=== PATIENT | male | born 1945 | race Two or more races ===

== ENCOUNTER 2020-09-25 18:47 | Inpatient (IN) | payer MEDICARE, OTHER ==
[~2020-09-25] VITALS: Ht 177.8 cm; Wt 24.9 kg
[~2020-09-25 18:47] MED LIST: ASPIR-LOW81 MG ORAL; PAXIL10 MG ORAL; VENTOLIN HFA18 GM INH
--- NOTE | 2020-09-25 18:55 | NUR ---
ED Nurse Note: PATIENT ARRIVED WITH RA # [id number] DUE TO BLOOD IN STOOL X 2 TIMES TODAY. PATIENT ARRIVED FROM SNF, AAO X 4, ALL VSS AT THIS TIME.
--- NOTE | 2020-09-25 18:58 | Emergency Room Report ---
History of Present Illness General Chief Complaint: General Complaint Source: Patient Present Illness HPI 75-year-old male here with bloody stool. Patient says that for the past 3 days he has had severe diarrhea and that earlier today he had a large amount of diarrhea that was mixed with red blood. Patient does have a history of anterior status post partial colectomy and was told that he has some polyps still. Denies fevers, chills, chest pain, shortness of breath, palpitations, lightheadedness, back pain, abdominal pain, nausea, vomiting, dysuria. 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 Nursing Documentation-[facility] Past Medical History: No History, Except For Hx Hypertension: Yes - ANXIETY, GERD Hx Asthma: Yes Hx Cancer: No Hx Gastrointestinal Problems: No Hx Neurological Problems: No Review of Systems All Other Systems: negative except mentioned in HPI Physical Exam Vital Signs Date Time Temp Pulse Resp B/P (MAP) Pulse Ox O2 Delivery O2 Flow Rate FiO2 09/25/20 18:42 98.1 98 16 111/60 (77) 100 Room Air Sp02 EP Interpretation: reviewed, normal General Appearance: no apparent distress, alert, non-toxic Head: normocephalic, atraumatic Eyes: bilateral eye normal inspection, bilateral eye PERRL ENT: hearing grossly normal, normal pharynx, no angioedema, normal voice Neck: full range of motion, supple/symm/no masses Respiratory: chest non-tender, lungs clear, normal breath sounds, speaking full sentences, other - 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 Well-healed midline sternotomy scar Cardiovascular #1: regular rate, rhythm, no edema Cardiovascular #2: 2+ carotid (R), 2+ carotid (L), 2+ radial (R), 2+ radial (L), 2+ dorsalis pedis (R), 2+ dorsalis pedis (L) Gastrointestinal: normal bowel sounds, non tender, soft, non-distended, no guarding, no rebound, other - Postsurgical changes. No abdominal tenderness. No rebound or guarding. No distention Rectal: deferred Genitourinary: normal inspection, no CVA tenderness Musculoskeletal: back normal, normal range of motion, gait/station normal, non- tender Neurologic: alert, motor strength/tone normal, oriented x3, sensory intact, responsive, speech normal Psychiatric: judgement/insight normal, memory normal, mood/affect normal, no suicidal/homicidal ideation Lymphatic: no adenopathy Medical Decision Making Diagnostic Impression: Primary Impression: GI bleed Additional Impressions: Pancreatitis Hyperbilirubinemia Diarrhea ER Course EKG: Atrial fibrillation, 101 bpm, no ischemia, intervals WNL. No ectopy. Left axis deviation. Nonspecific intraventricular block Rhythm strip: patient monitored for arrhythmias - no malignant dysrhythmias, runs of PVCs, nor pauses noted Laboratory Tests Test 09/25/20 19:05 White Blood Count 9.6 K/UL (4.8-10.8) Red Blood Count 3.70 M/UL (4.70-6.10) L Hemoglobin 12.3 G/DL (14.2-18.0) L Hematocrit 37.8 % (42.0-52.0) L Mean Corpuscular Volume 102 FL (80-99) H Mean Corpuscular Hemoglobin 33.1 PG (27.0-31.0) H Mean Corpuscular Hemoglobin Concent 32.4 G/DL (32.0-36.0) Red Cell Distribution Width 15.0 % (11.6-14.8) H Platelet Count 141 K/UL (150-450) L Mean Platelet Volume 9.2 FL (6.5-10.1) Neutrophils (%) (Auto) 69.0 % (45.0-75.0) Lymphocytes (%) (Auto) 21.0 % (20.0-45.0) Monocytes (%) (Auto) 6.6 % (1.0-10.0) Eosinophils (%) (Auto) 2.1 % (0.0-3.0) Basophils (%) (Auto) 1.3 % (0.0-2.0) Prothrombin Time 14.1 SEC (9.30-11.50) H Prothrombin Time INR 1.3 (0.9-1.1) H Activated Partial Thromboplast Time 28 SEC (23-33) Sodium Level 141 MMOL/L (136-145) Potassium Level 3.4 MMOL/L (3.5-5.1) L Chloride Level 108 MMOL/L (98-107) H Carbon Dioxide Level 26 MMOL/L (21-32) Anion Gap 7 mmol/L (5-15) Blood Urea Nitrogen 17 mg/dL (7-18) Creatinine 1.1 MG/DL (0.55-1.30) Estimated Glomerular Filtration Rate > 60 mL/min (>60) Glucose Level 96 MG/DL (74-106) Calcium Level 8.7 MG/DL (8.5-10.1) Total Bilirubin 4.3 MG/DL (0.2-1.0) H Direct Bilirubin 2.6 MG/DL (0.0-0.3) H Aspartate Amino Transferase (AST) 68 U/L (15-37) H Alanine Aminotransferase (ALT) 37 U/L (12-78) Alkaline Phosphatase 154 U/L (46-116) H Total Protein 7.8 G/DL (6.4-8.2) Albumin 2.4 G/DL (3.4-5.0) L Globulin 5.4 g/dL Albumin/Globulin Ratio 0.4 (1.0-2.7) L Lipase 593 U/L (73-393) H 75-year-old male here with diarrhea and hematochezia. Patient was hemodynamically stable and neurovascular intact emergency department. EKG showed patient's baseline atrial fibrillation with a normal heart rate of 100 bpm. Had a normal blood pressure in the emergency department. Hemoglobin was 12.5, decreased from last CBC which our records was 5 years ago. Hemoccult positive. Patient did have evidence of hyperbilirubinemia with a total bilirubin of 4. Lipase was 593. Patient was given IV normal saline and kept n.p.o. in the emergency department. Potassium was mildly low at 3.4, which was repleted in the emergency department. Right upper quadrant ultrasound was performed. Showed contracted gallbladder with no identifiable stones. There is some mild extrahepatic biliary duct dilatation, MRCP advised to be considered to evaluate for choledocholithiasis. Patient however had no right upper quadrant a bdominal pain whatsoever. Primary care physician was informed. Patient was given Protonix. Patient admitted in stable condition. Last Vital Signs Date Time Temp Pulse Resp B/P (MAP) Pulse Ox O2 Delivery O2 Flow Rate FiO2 09/25/20 18:42 98.1 98 16 111/60 (77) 100 Room Air Shaka Vega M.D. Sep 25, 2020 18:58
[2020-09-25 19:18] LABS: BASOPHILS % (AUTO) 1.3 % (0.0-2.0); EOSINOPHILS % (AUTO) 2.1 % (0.0-3.0); HEMATOCRIT 37.8 % (42.0-52.0); HEMOGLOBIN 12.3 G/DL (14.2-18.0); MEAN CORPUSCULAR VOLUME 102 FL (80-99); MONOCYTES % (AUTO) 6.6 % (1.0-10.0); PLATELET COUNT 141 K/UL (150-450); WHITE BLOOD COUNT 9.6 K/UL (4.8-10.8)
[2020-09-25 19:19] VITALS: BP 111/60
--- NOTE | 2020-09-25 19:26 | NUR ---
HAND-OFF: Report given to PASCUAL Don.
[2020-09-25 19:27] LABS: INR 1.3 (0.9-1.1)
[2020-09-25 19:30] LABS: ANION GAP 7 mmol/L (5-15); BLOOD UREA NITROGEN 17 mg/dL (7-18); CALCIUM 8.7 MG/DL (8.5-10.1); CARBON DIOXIDE 26 MMOL/L (21-32); CHLORIDE 108 MMOL/L (98-107); CREATININE 1.1 MG/DL (0.55-1.30); POTASSIUM 3.4 MMOL/L (3.5-5.1); SODIUM 141 MMOL/L (136-145)
--- NOTE | 2020-09-25 19:35 | NUR ---
Nurse Note: Pt resting in bed, attached on monitoring engineer. Pt a&ox4, VSS, all orders completed per ERMD orders. Pt stated he had 2 episodes of red stools in 24 hrs. Bowel sounds heard in all quadrants. Skin intact, bruising noted on bilateral wrists. All safety measures met; will continue to monitor.
[2020-09-25 19:40] LABS: ALANINE AMINOTRANSFERASE 37 U/L (12-78); ALBUMIN 2.4 G/DL (3.4-5.0); ALBUMIN/GLOBULIN RATIO 0.4 (1.0-2.7); ALKALINE PHOSPHATASE 154 U/L (46-116); ASPARTATE AMINO TRANSFERASE 68 U/L (15-37); BILIRUBIN,TOTAL 4.3 MG/DL (0.2-1.0)
[2020-09-25 19:44] LABS: BILIRUBIN,DIRECT 2.6 MG/DL (0.0-0.3)
--- NOTE | 2020-09-25 19:52 | NUR ---
Nurse Note: US at bedside; covid swab collected and sent to lab
[2020-09-25] MEDS ORDERED: Metoprolol Tartrate 5mg/5ml Inj IVP SCH (20:45)
[2020-09-25 20:50] LABS: APPEARANCE,URINE CLEAR; BILIRUBIN, URINE 1+ (NEGATIVE); COLOR,URINE BROWN; GLUCOSE, URINE (UA) NEGATIVE (NEGATIVE); KETONES,URINE NEGATIVE (NEGATIVE); LEUKOCYTE ESTERASE ,URINE 1+ (NEGATIVE); NITRITE,URINE NEGATIVE (NEGATIVE); PH,URINE 6.5 (4.5-8.0); PROTEIN,URINE NEGATIVE (NEGATIVE); UROBILINOGEN,URINE 8 MG/DL (0.0-1.0)
--- NOTE | 2020-09-25 20:51 | Diagnostic Imaging Report ---
EXAM: US Abdomen Complete CLINICAL HISTORY: PAIN TECHNIQUE: Real-time ultrasound of the abdomen with image documentation. COMPARISON: No relevant prior studies available. FINDINGS: Liver: Mild increased echogenicity of the hepatic parenchyma consistent with steatosis. No intrahepatic bile duct dilation. Gallbladder: The gallbladder is contracted likely reflecting nonfasting state at the time of imaging, requires clinical correlation. Common bile duct: Biliary ductal dilatation with the common duct measuring up to 11 mm. Consider MRCP. No stones. Pancreas: Unremarkable as visualized. Kidneys: Cortical renal cyst on the right and no evidence of obstructive uropathy. No evidence of obstructive uropathy on the left. No stones. Spleen: Splenomegaly with the spleen measuring approximately 13 cm in long axis. Aorta: Unremarkable. No aneurysm. Inferior vena cava: Unremarkable. Free fluid: No free fluid. IMPRESSION: Contracted gallbladder with no identifiable stones. Extrahepatic biliary ductal dilatation, consider MRCP to evaluate for choledocholithiasis.
--- NOTE | 2020-09-25 21:07 | NUR ---
Nurse Note: Urine sent to lab. Per MD, hold Metoprolol and adminsiter when HR >120 bpm. Pt resting in bed; all safety measures met; will continue to monitor. Caregiver: Viki,
[2020-09-25] MEDS ORDERED: ATIVAN1 MG ORAL (21:19)
[2020-09-25] MEDS ORDERED: CATAPRES0.1 MG ORAL (21:23)
[2020-09-25] MEDS ORDERED: BISACODYL5 MG ORAL (21:23)
[2020-09-25] MEDS ORDERED: COLACE100 MG ORAL (21:23)
[2020-09-25] MEDS ORDERED: MILK OF MA400 MG/51 ORAL (21:25)
[2020-09-25] MEDS ORDERED: FLEET ENEMA133 ML RECTAL (21:25)
[2020-09-25] MEDS ORDERED: GABAPENTIN100 MG ORAL (21:25)
[2020-09-25] MEDS ORDERED: MULTIVITAMINS1 EAC8 ORAL (21:26)
[2020-09-25] MEDS ORDERED: TYLENOL EXTRA500 MG ORAL (21:28)
[2020-09-25] MEDS ORDERED: MYLANTA MAXIMU355 ML PO (21:28)
[2020-09-25] MEDS ORDERED: PANTOPRAZOLE SO40 MG ORAL (21:28)
--- NOTE | 2020-09-25 21:33 | NUR ---
NURSE NOTES: RECEIVED REPORT FROM PASCUAL PATEL. AWAITING PATIENT'S ARRIVAL.
--- NOTE | 2020-09-25 21:33 | NUR ---
Nurse Note: Report given to PASCUAL Hess for continuity of care.
[2020-09-25 21:45] VITALS: BP 122/68
--- NOTE | 2020-09-25 21:45 | NUR ---
NURSE NOTES: PATIENT ARRIVED FROM ED VIA GURNEY, TRANSFERRED TO [facility] PER MD ORDER UNDER CARE OF Marietta ANN WITH ADMITTING DIAGNOSIS OF GI BLEED. PATIENT TRANSFERRED TO BED VIA 2-PERSON ASSIST WITHOUT INCIDENT, PATIENT ABLE TO ASSIST WITH TRANSFER. AAOX4, VERBALLY RESPONSIVE AND ABLE TO MAKE NEEDS KNOWN. NO COMPLAINTS OF PAIN OR DISCOMFORT AT THIS TIME. SINUS TACHYCARDIA ON TIRE CENTER MANAGER WITH HF OR 125 AT THIS TIME. BREATHING EVEN AND UNLABORED ON ROOM AIR, NO S/SX OF DISTRESS NOTED. IV SITE LFA 20G PATENT, INTACT, ASYMPTOMATIC AND SALINE-LOCKED. BELONGINGS VERIFIED WITH PATIENT- NO CELLPHONE/DENTURES/GLASSES/AMBULATORY AIDES IN POSSESSION. ORIENTED PATIENT TO UNIT, ROOM, CALL LIGHT, BED CONTROL, AND COMMUNICATION BOARD. EDUCATED PATIENT ON FALL PREVENTION PRACTICES- VERBALIZED UNDERSTANDING. FALL PRECAUTIONS IN PLACE. BED LOCKED AND IN LOWEST POSITION, SIDERAILS UP X 2. CALL LIGHT AND URINAL WITHIN REACH. WILL CONTINUE TO MONITOR PER POC. V/S AT TIME OF ADMISSION ARE FOLLOWS: BP 128/80 (RIGHT ARM), HR 111, RR 18, SAO2 100% ON ROOM AIR, TEMP 97.6F. Addendum: 09/26/20 at 0015 by Magy Gutierrez RN A.FIB ON TIRE CENTER MANAGER WITH HR OF 125
[2020-09-25 22:00] VITALS: BP 128/80
[2020-09-25] MEDS: Pantoprazole Inj IVP SCH (22:22)
--- NOTE | 2020-09-25 22:30 | NUR ---
NURSE NOTES: CONTACTED DR. MERINO FOR ADMISSION ORDERS. AWAITING CALL BACK.
[2020-09-25] MEDS ORDERED: Morphine Sulfate 2mg/ml Inj(IV/IM USE ONLY) IVP PRN (22:45)
[2020-09-25] MEDS ORDERED: Milk of Magnesia 30ml Ud ORAL PRN (23:00)
[2020-09-25] MEDS ORDERED: LORazepam 1mg tab ORAL PRN (23:00)
--- NOTE | 2020-09-25 23:00 | NUR ---
NURSE NOTES: RECEIVED ADMISSION ORDERS FROM DR. MERINO. NOTED AND CARRIED OUT.
[2020-09-25] MEDS: D5 1/2NS 1,000 ML IV SCH (23:16)
[2020-09-26] VITALS: BP 110/68
[2020-09-26 04:00] VITALS: BP 121/70
--- NOTE | 2020-09-26 06:35 | NUR ---
NURSE HAND-OFF REPORT: Important Events on Shift: NEW ADMISSION Patient Status: STABLE Diet: NPO Pending Orders: N/A Pending Results/Labs: AM LABS Pending MD notification: N/A Latest Vital Signs: Temperature 97.8 , Pulse 88 , B/P 121 /70 , Respiratory Rate 16 , O2 SAT 99 , Room Air, O2 Flow Rate . Vital Sign Comment: STABLE EKG Rhythm: Atrial Fibrillation Rhythm change?: N MD Notified?: - MD Response: Latest Munguia Fall Score: 65 Fall Risk: High Risk Safety Measures: Call light Within Reach, Bed Alarm Zone 1, Side Rails Side Rails x3, Bed position Low and Locked. Fall Precautions: Yellow Socks Yellow Gown Door Sign Patient Fall Education Report given to WILL AMEND ONCE REPORT GIVEN TO ASSIGNED NURSE. Addendum: 09/26/20 at 0752 by Magy Gutierrez RN REPORT GIVEN TO PASCUAL FAY.
--- NOTE | 2020-09-26 07:56 | NUR ---
NURSE NOTES:Handoff received from PASCUAL Bhatti. Patient received sleeping in bed, on room air with no acute signs of distress noted, patient is placed on bedrest and fall precautions with bed in the low and locked position and call light within reach. RN endorsed that patient had episode of A-FIB Primary MD aguiar notified but no new orders or consult provided to PM shift nurse, Patient is now in Sinus rhythm. Patient is NPO and uses urinal. L FA IV site is clean dry and intact, running D51/2NS @60ML/HR. will continue plan of care.
[2020-09-26 08:00] VITALS: BP 113/60
--- NOTE | 2020-09-26 08:10 | NUR ---
NURSE NOTES:Dr Butts arrived on the unit, informed him that patient had an episode of A-FIB on nightshift asked if he wanted a cardiology consult, Dr Butts stated he will put in a consult for Dr Silveira-electronics technology department chair.
[2020-09-26] MEDS: PARoxetine HCL 10mg tab ORAL SCH (08:47)
[2020-09-26] MEDS: Docusate 100mg cap ORAL SCH (08:47)
[2020-09-26 08:54] LABS: HEMATOCRIT 38.1 % (42.0-52.0); HEMOGLOBIN 12.1 G/DL (14.2-18.0); MEAN CORPUSCULAR VOLUME 104 FL (80-99); MONOCYTES % (AUTO) 7.7 % (1.0-10.0); NEUTROPHILS % (AUTO) 65.3 % (45.0-75.0); PLATELET COUNT 127 K/UL (150-450); RED BLOOD COUNT 3.66 M/UL (4.70-6.10); RED CELL DISTRIBUTION WIDTH 15.2 % (11.6-14.8); WHITE BLOOD COUNT 8.4 K/UL (4.8-10.8)
--- NOTE | 2020-09-26 09:05 | NUR ---
PT EVALUATION NOTE Patient seen for initial evaluation and treatment initiated. Patient presents with generalized weakness and decreased balance which impairs patient's ability to perform mobility tasks safely and increased fall risk. Patient requires SBA/CGA for bed mobility and transfers with FWW. Patient unsteady upon standing and requires verbal cues for proper safety precautions. Patient able to ambulate 40 ft with CGA and FWW, unsteady with fair balance. Patient will benefit from skilled inpatient PT intervention to increase strength and postural stability for improved level of functional mobility and safety and to decrease fall risk. Recommend discharge to SNF for continued rehab once medically cleared by MD. Recommend FWW for ambulation. Addendum: 09/26/20 at 1257 by GONZALO CHRISTY PT Amended: Links added.
[2020-09-26 09:11] LABS: AMYLASE 80 U/L (25-115); ANION GAP 7 mmol/L (5-15); BLOOD UREA NITROGEN 12 mg/dL (7-18); CALCIUM 7.9 MG/DL (8.5-10.1); CARBON DIOXIDE 23 MMOL/L (21-32); CHLORIDE 111 MMOL/L (98-107); CREATININE 0.9 MG/DL (0.55-1.30); POTASSIUM 3.6 MMOL/L (3.5-5.1); SODIUM 141 MMOL/L (136-145)
--- NOTE | 2020-09-26 10:05 | NUR ---
NURSE NOTES:Patient is requesting to not be sent back to SNF stating that he has his own home next door to his customer care voice consultant/GF who can take care of him. Informed him that I will make his wishes known to case management.
--- NOTE | 2020-09-26 10:47 | NUR ---
NURSE NOTES:Made multiple calls to multiple different watch caser but no reply, will try again later.
--- NOTE | 2020-09-26 10:54 | NUR ---
NURSE NOTES:Off tele order received from Dr Butts for patient imaging study.
--- NOTE | 2020-09-26 11:04 | NUR ---
NURSE NOTES:went in to get consent from patient. Patient requesting to speak to the MD regarding the EGD and Colonoscopy.
[2020-09-26 11:37] VITALS: BP 110/61
--- NOTE | 2020-09-26 12:14 | Consultation ---
History of Present Illness General Date patient seen: Sep 26, 2020 Chief Complaint: General Complaint Present Illness HPI 75 y/o M with hx of GERD, anxiety, partial colectomy presented to ED on 09/25/20 with 3 days of severe bloody diarrhea Denied f/c, CP, SOB, abd pain, n/v/d, dysuria. Allergies: Coded Allergies: PENICILLINS (Unverified Allergy, Unknown, 02/01/15) Medication History Scheduled Albuterol Sulfate (Ventolin Hfa), 2 PUFFS INH BID, (Reported) Aspirin* (Aspir-Low*), 81 MG ORAL DAILY, (Reported) Bisacodyl* (Dulcolax*), 10 MG ORAL DAILY, (Reported) Docusate Sodium* (Colace*), 100 MG ORAL DAILY, (Reported) Gabapentin* (Gabapentin*), 300 MG ORAL THREE TIMES A DAY, (Reported) Magnesium Hydroxide* (Milk Of Magnesia*), 30 ML ORAL DAILY, (Reported) Multivitamin With Minerals (Multivitamins With Minerals*), 1 TAB ORAL DAILY, (Reported) Na Phos,M-B/Na Phos,Di-Ba* (Fleet Enema*), 133 ML RECTAL PRN, (Reported) Pantoprazole* (Pantoprazole*), 40 MG ORAL DAILY, (Reported) Paroxetine Hcl* (Paxil*), 10 MG ORAL DAILY, (Reported) Scheduled PRN Acetaminophen* (Tylenol Extra Strength*), 500 MG ORAL Q6H PRN for Mild Pain/Temp > 100.5, (Reported) Clonidine Hcl* (Catapres*), 0.1 MG ORAL EVERY 6 HOURS PRN for For High Blood Pressure, (Reported) Lorazepam* (Ativan*), 1 MG ORAL BID PRN for For Anxiety, (Reported) Miscellaneous Medications Mag Hydrox/Aluminum Hyd/Simeth (Mylanta Maximum Strength Liq), 30 ML PO, ( Reported) Patient History Healthcare decision maker N Resuscitation status Advanced Directive on File Patient History Narrative Pmhx: as above Shx: reviewed Fhx: non contributory Review of Systems All Other Systems: negative except mentioned in HPI Physical Exam Physical Exam Narrative not examined as pt was on MRI Last 24 Hour Vital Signs Date Time Temp Pulse Resp B/P (MAP) Pulse Ox O2 Delivery O2 Flow Rate FiO2 09/26/20 11:37 96.8 74 20 110/61 (77) 97 09/26/20 08:29 Room Air 09/26/20 08:00 96.8 76 18 113/60 (77) 96 09/26/20 08:00 75 09/26/20 04:00 86 09/26/20 04:00 97.8 88 16 121/70 (87) 99 09/26/20 00:00 97 09/26/20 00:00 97.8 110 18 110/68 (82) 99 09/25/20 23:16 125 20 111/70 100 09/25/20 23:09 Room Air 09/25/20 22:00 97.6 111 18 128/80 (96) 100 09/25/20 21:45 98.8 88 16 122/68 100 Room Air 09/25/20 21:45 88 16 122/68 100 Room Air 09/25/20 19:19 98 16 Room Air 09/25/20 19:19 16 111/60 100 Room Air 09/25/20 18:42 98.1 98 16 111/60 (77) 100 Room Air Intake and Output 09/25/20 09/26/20 19:00 07:00 Intake Total 2404 ml Output Total 1000 ml Balance 1404 ml IV Total 2404 ml Output Urine Total 1000 ml # Voids 1 Laboratory Tests Test 09/25/20 19:05 09/25/20 20:38 09/26/20 08:41 White Blood Count 9.6 K/UL (4.8-10.8) 8.4 K/UL (4.8-10.8) Red Blood Count 3.70 M/UL (4.70-6.10) L 3.66 M/UL (4.70-6.10) L Hemoglobin 12.3 G/DL (14.2-18.0) L 12.1 G/DL (14.2-18.0) L Hematocrit 37.8 % (42.0-52.0) L 38.1 % (42.0-52.0) L Mean Corpuscular Volume 102 FL (80-99) H 104 FL (80-99) H Mean Corpuscular Hemoglobin 33.1 PG (27.0-31.0) H 33.1 PG (27.0-31.0) H Mean Corpuscular Hemoglobin Concent 32.4 G/DL (32.0-36.0) 31.8 G/DL (32.0-36.0) L Red Cell Distribution Width 15.0 % (11.6-14.8) H 15.2 % (11.6-14.8) H Platelet Count 141 K/UL (150-450) L 127 K/UL (150-450) L Mean Platelet Volume 9.2 FL (6.5-10.1) 9.4 FL (6.5-10.1) Neutrophils (%) (Auto) 69.0 % (45.0-75.0) 65.3 % (45.0-75.0) Lymphocytes (%) (Auto) 21.0 % (20.0-45.0) 22.0 % (20.0-45.0) Monocytes (%) (Auto) 6.6 % (1.0-10.0) 7.7 % (1.0-10.0) Eosinophils (%) (Auto) 2.1 % (0.0-3.0) 4.0 % (0.0-3.0) H Basophils (%) (Auto) 1.3 % (0.0-2.0) 1.0 % (0.0-2.0) Prothrombin Time 14.1 SEC (9.30-11.50) H Prothromb Time International Ratio 1.3 (0.9-1.1) H Activated Partial Thromboplast Time 28 SEC (23-33) Sodium Level 141 MMOL/L (136-145) 141 MMOL/L (136-145) Potassium Level 3.4 MMOL/L (3.5-5.1) L 3.6 MMOL/L (3.5-5.1) Chloride Level 108 MMOL/L (98-107) H 111 MMOL/L (98-107) H Carbon Dioxide Level 26 MMOL/L (21-32) 23 MMOL/L (21-32) Anion Gap 7 mmol/L (5-15) 7 mmol/L (5-15) Blood Urea Nitrogen 17 mg/dL (7-18) 12 mg/dL (7-18) Creatinine 1.1 MG/DL (0.55-1.30) 0.9 MG/DL (0.55-1.30) Estimat Glomerular Filtration Rate > 60 mL/min (>60) > 60 mL/min (>60) Glucose Level 96 MG/DL (74-106) 90 MG/DL (74-106) Calcium Level 8.7 MG/DL (8.5-10.1) 7.9 MG/DL (8.5-10.1) L Total Bilirubin 4.3 MG/DL (0.2-1.0) H Direct Bilirubin 2.6 MG/DL (0.0-0.3) H Aspartate Amino Transf (AST/SGOT) 68 U/L (15-37) H Alanine Aminotransferase (ALT/SGPT) 37 U/L (12-78) Alkaline Phosphatase 154 U/L (46-116) H Total Protein 7.8 G/DL (6.4-8.2) Albumin 2.4 G/DL (3.4-5.0) L Globulin 5.4 g/dL Albumin/Globulin Ratio 0.4 (1.0-2.7) L Lipase 593 U/L (73-393) H 469 U/L (73-393) H Urine Color Brown Urine Appearance Clear Urine pH 6.5 (4.5-8.0) Urine Specific [place] 1.015 (1.005-1.035) Urine Protein Negative (NEGATIVE) Urine Glucose (UA) Negative (NEGATIVE) Urine Ketones Negative (NEGATIVE) Urine Blood 2+ (NEGATIVE) H Urine Nitrite Negative (NEGATIVE) Urine Bilirubin 1+ (NEGATIVE) H Urine Ictotest Negativer (NEGATIVE) Urine Urobilinogen 8 MG/DL (0.0-1.0) H Urine Leukocyte Esterase 1+ (NEGATIVE) H Urine RBC 2-4 /HPF (0 - 0) H Urine WBC 5-10 /HPF (0 - 0) H Urine Squamous Epithelial Cells Occasional /LPF Urine Bacteria Few /HPF (NONE) Urine Mucus Few /LPF (NONE/OCC) H Amylase Level 80 U/L (25-115) Microbiology Date/Time Source Procedure Growth Status 09/25/20 21:35 Rectum Received 09/25/20 19:45 Nasopharynx SARS-CoV-2 RdRp Gene Assay - Final Complete Height (Feet): 5 Height (Inches): 11.00 Weight (Pounds): 123 Medications Current Medications Medications (Trade) Dose Ordered Sig/[place] Route PRN Reason Start Time Stop Time Status Last Admin Dose Admin Acetaminophen (Tylenol) 650 mg Q4H PRN ORAL Mild Pain (Pain Scale 1-3) 09/25/20 23:00 10/25/20 22:59 Al Hydroxide/Mg Hydroxide (Mylanta) 30 ml Q6H PRN ORAL HEART BURN 09/25/20 23:00 10/25/20 22:59 Bisacodyl (Dulcolax) 10 mg DAILYPRN PRN RECTAL Constipation 09/25/20 23:00 12/24/20 22:59 Bisacodyl (Dulcolax) 10 mg ONCE ORAL 09/26/20 16:00 09/26/20 17:00 Clonidine HCl (Catapres Tab) 0.1 mg Q6H PRN ORAL For High Blood Pressure 09/25/20 23:00 12/24/20 22:59 Dextrose/Sodium Chloride 1,000 ml @ 60 mls/hr [id number] IV 09/25/20 23:15 10/25/20 23:14 09/25/20 23:16 Docusate Sodium (Colace) 100 mg DAILY ORAL 09/26/20 09:00 10/26/20 08:59 09/26/20 08:47 Gabapentin (Neurontin) 300 mg TID ORAL 09/26/20 09:00 10/26/20 08:59 09/26/20 08:47 Lorazepam (Ativan) 1 mg Q12H PRN ORAL For Anxiety 09/25/20 23:00 10/02/20 22:59 09/25/20 23:16 Magnesium Hydroxide (Mom) 30 ml DAILY PRN ORAL Constipation 09/25/20 23:00 10/25/20 22:59 Metoprolol Tartrate (Lopressor) 5 mg Q5MIN X 3 IVP 09/25/20 20:45 12/24/20 20:44 Morphine Sulfate (Morphine Sulfate) 2 mg Q4H PRN IVP For Pain 09/25/20 22:45 10/02/20 22:44 Multivitamins (Multivitamins) 1 tab DAILY ORAL 09/26/20 09:00 10/26/20 08:59 09/26/20 08:47 Ondansetron HCl (Zofran) 4 mg Q4H PRN IVP Nausea & Vomiting 09/25/20 22:45 10/25/20 22:44 Pantoprazole (Protonix) 40 mg DAILY ORAL 09/26/20 09:00 10/26/20 08:59 09/26/20 08:47 Pantoprazole (Protonix) 40 mg NOW IVP 09/25/20 21:45 10/25/20 21:44 09/25/20 22:22 Paroxetine HCl (Paxil) 10 mg DAILY ORAL 09/26/20 09:00 10/26/20 08:59 09/26/20 08:47 Polyethylene Glycol (Miralax) 238 gm ONCE ONCE ORAL 09/26/20 16:00 09/26/20 16:01 Assessment/Plan Assessment/Plan: Abx: None Assessment: Afebrile NO leukocytosis -u/a wbc 10-15, nit neg, leuk +1 Bloody diarrhea- r/o infectious vs inflammatory colitis, malignancy, diverticular bleed -MRI abd p -Abd US : Contracted gallbladder with no identifiable stones. Extrahepatic biliary ductal dilatation, consider MRCP to evaluate for choledocholithiasis. -elevated lipase GERD anxiety partial colectomy Plan: -Continue to monitor off abx unless febrile, leukocytosis, and/or HD instability -f/u cx -Monitor CBC/CMP, temperatures -f/u MRI abd -Cdiff, stool cx -GI f/u Thank you for consulting [facility]. Will continue to follow along with you. Discussed with Dilcia Quinn M.D. Sep 26, 2020 12:14
--- NOTE | 2020-09-26 12:18 | NUR ---
NURSE NOTES:Contacted Dr Kellen LLOYD to let him know that the patient would like to speak to the MD performing the procedure before he signs the consent.
--- NOTE | 2020-09-26 12:47 | NUR ---
RD ASSESSMENT & RECOMMENDATIONS SEE CARE ACTIVITY FOR COMPLETE ASSESSMENT DAILY ESTIMATED NEEDS: Needs based on underweight 56.4kg 30-35 kcals/kg 0434-5953 total kcals 1-1.5 g protein/kg 56-85 g total protein 25-30 mL/kg 4739-3799 total fluid mLs NUTRITION DIAGNOSIS: Altered nutrition related lab values r/t clinical status as evidenced by elev Lipase (593 on adm), elev T bili (4.3) CURRENT DIET:NPO for GI prep PO DIET RECOMMENDATIONS: Low fat diet ADDITIONAL RECOMMENDATIONS: 1) Obtain calibrated bed scale wt 2) Monitor lytes while NPO, maintain D5 3) F/up w/ H&P 4) Add Ensure Clear TID w/ diet Monitor lipase, ability to add Ensure Enlive (11g fat)
--- NOTE | 2020-09-26 13:30 | History and Physical Report ---
DATE OF ADMISSION: 09/25/2020 TIME SEEN: On 09/26/2020 at approximately 9 a.m. CONSULTANTS: 1. Geremias Foreman MD. 2. Ketty Kagn MD. 3. Dhruv Silveira MD. CHIEF COMPLAINT: Diarrhea with blood, pancreatitis, abdominal pain. BRIEF HISTORY: This is a 75-year-old male from [facility] presented with slight abdominal pain with some diarrhea with bright blood, came to [place], diagnosed with the above, admitted to [facility], currently calm in bed, no complaint. No chest pain. No shortness of breath. Slight nausea. No vomiting. Slight diarrhea. PAST MEDICAL HISTORY: Includes hypertension, alcohol abuse, polyneuropathy, GERD, weakness, insomnia. PAST SURGICAL HISTORY: Heart surgery. MEDICATIONS: Include multivitamin, paroxetine, pantoprazole, gabapentin, docusate sodium, Bisacodyl, magnesium, Tylenol, clonidine, lorazepam, Zofran, morphine, pantoprazole. ALLERGIES: Penicillin. SOCIAL HISTORY: Positive smoke. Positive alcohol. No intravenous drug abuse. FAMILY HISTORY: Noncontributory. PHYSICAL EXAMINATION: GENERAL: Calm in bed, oriented x2, in no acute distress. VITAL SIGNS: Temperature 97, pulse 76, respiratory rate 18, blood pressure 113/60. CARDIOVASCULAR: No murmur. LUNGS: Distant and clear. ABDOMEN: Bowel sounds positive. Nontender. Nondistended. EXTREMITIES: No cyanosis, clubbing, or edema. NEUROLOGIC: The patient moving all extremities, slightly weak. LABORATORY AND DIAGNOSTIC DATA: Labs at this time show hemoglobin and hematocrit 12 and 38, platelets 127, otherwise normal. BMP show potassium 3.4, chloride 108, total bilirubin 4.3, direct bilirubin 2.6. AST 68, alkaline phosphatase 154, albumin 2.4. Lipase 593. INR is 1.3. Urinalysis show 1+ bilirubin, 2+ blood, 1+ leukocyte esterase. ASSESSMENT: 1. GI bleed. 2. Diarrhea blood. 3. UTI. 4. Pancreatitis. 5. Anemia. 6. Moderate malnutrition. 7. . 8. Atrial fibrillation. 9. Alcohol abuse. 10. Polyneuropathy. 11. GERD. 12. Weakness. 13. Insomnia. PLAN: 1. NPO. 2. IV fluids. 3. Blood pressure and pain control. 4. Antibiotics per Infectious Diseases. 5. Resume home medications. 6. Dietary followup. 7. PT and dietary evaluation. 8. CBC and BMP in the morning. Sarkis Butts D.O. DR: Nathalie JOB#: [id number] CC:
--- NOTE | 2020-09-26 14:15 | Consultation ---
DATE OF CONSULTATION: 09/26/2020 GASTROENTEROLOGY CONSULTATION CONSULTING PHYSICIAN: Geremias Foreman MD. REFERRING PHYSICIAN: Sarkis Butts DO. CHIEF COMPLAINT: Rectal bleeding. HISTORY OF PRESENT ILLNESS: This is a very pleasant, anxious 75-year-old [place] male with history of colon cancer, status post resection about five years ago, presented to the hospital with complaint of bloody stools. The patient also complained of abdominal pain and nausea. No hematemesis. The patient, as I examined him, he is very anxious. He is worried about peters. PAST MEDICAL HISTORY: 1. Coronary artery disease. 2. CABG. 3. History of valve replacement. 4. Hypertension. 5. History of colon cancer, status post resection. 6. GERD. 7. Anxiety and depression. 8. Prior history of alcohol usage. ALLERGIES: Penicillin. MEDICATIONS: Please see medication reconciliation list. SOCIAL HISTORY: The patient lives in a rehab. 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 FAMILY HISTORY: Noncontributory. PAST SURGICAL HISTORY: History of CABG, cataract on the right eye, and also the patient had an open heart surgery in 2015, hemicolectomy five years ago. PHYSICAL EXAMINATION: VITAL SIGNS: Temperature is 96.8, pulse 76, respirations 18, blood pressure 113/60. HEENT: Normocephalic and atraumatic. Sclerae are anicteric. NECK: Supple. No evidence of obvious lymphadenopathy. CARDIOVASCULAR: Regular rate and rhythm. Plus S1-S2. LUNGS: Decreased breath sounds bilaterally based on the supine exam. ABDOMEN: Soft, nontender. No rebound. No guarding. No peritoneal sign. There is a scar from prior abdominal surgery. EXTREMITIES: No cyanosis, no clubbing, no edema. LABORATORY DATA: Sodium 141, potassium 3.6, BUN 12, creatinine 0.9. Lipase is 469. White count is 8.4, hemoglobin 12.1, hematocrit 38, MCV of 104, platelet count 127,000. Liver function, elevated bilirubin of 4.3, direct bilirubin of 2.6, AST of 68, ALT of 37, alkaline phosphatase of 154. IMAGING STUDIES: Abdominal ultrasound showed dilated common bile duct with contracted gallbladder. ASSESSMENT: This is a 75-year-old male with numerous problems, evidence of microcytic anemia, rectal bleeding, history of colon cancer, dilated common bile duct, abnormal liver function tests. PLAN: I spent a lot of time discussing with anxious patient at the bedside. We are going to try to schedule him for endoscopy and colonoscopy tomorrow for evaluation of source of bleeding to rule out recurrent colon malignancy. Meanwhile, we are going to send a CEA level. We are going to check CBC for tomorrow. Anemia workup for tomorrow including folic acid, vitamin B12, and iron panel. In terms of dilated common bile duct, we will order MRCP for today to rule out CBD stone. We will follow on daily basis and make further recommendation as we go along. I want to thank Dr. Sarkis Butts for this kind referral. Geremias Foreman M.D. DR: FROYLAN JOB#: [id number] CC:
--- NOTE | 2020-09-26 14:35 | Cardiology Report ---
APPROVED REPORT EKG Measurement Heart [id number] <Conclusion> Atrial fibrillation with rapid ventricular response Left axis deviation Nonspecific intraventricular block Cannot rule out Anteroseptal infarct, age undetermined Abnormal ECG
[2020-09-26 15:35] VITALS: BP 121/67
[2020-09-26] MEDS: D5 1/2NS 1,000 ML IV SCH (15:55)
[2020-09-26] MEDS ORDERED: Bisacodyl EC 5mg tab ORAL SCH (16:00)
[2020-09-26] MEDS ORDERED: Polyethylene Glycol 238gm bottle ORAL ONE (16:00)
--- NOTE | 2020-09-26 19:25 | Diagnostic Imaging Report ---
Indication: Abdominal pain Technique: Coronal and axial single shot fast spin-echo breath-hold, axial T2 FRFSE, 2-D thick slab MRCP, AXIAL 2-D FIESTA fat saturated, axial 3-D dual echo breath-hold, water weighted axial LAVA FLEX, revealed 3-D MRCP images were obtained of the abdomen. MIP reconstructions were generated of the bile ducts Comparison: Sonogram dated 09/25/2020 Findings: The gallbladder is distended, unlike on the prior sonogram. No intraluminal filling defects to suggest gallstones are evident. The extrahepatic bile ducts are dilated, common bile duct measuring up to 14 mm in diameter. The intrahepatic ducts are minimally if at all dilated. No intraluminal filling defects are demonstrated. No downstream obstructive lesion demonstrated. The pancreatic duct is mildly prominent. The liver is unremarkable. There is trace free intraperitoneal fluid adjacent to the right hepatic lobe as well as within the lavern hepatis. The pancreas, spleen, adrenals are unremarkable. The kidneys demonstrate multiple cysts. The bladder demonstrates what appear to be multiple diverticula. There is a right-sided pleural effusion Impression: No evidence of gallstones Dilated common bile duct, without evidence of downstream obstructive lesion or choledocholithiasis. Significance/etiology uncertain, may be on the basis of senescent changes. Note absence of intrahepatic biliary ductal dilatation. Correlate with liver function tests Trace free intraperitoneal fluid Right-sided pleural effusion Diverticulitis bladder Incidental finding bilateral renal cysts
--- NOTE | 2020-09-26 19:54 | NUR ---
NURSE HAND-OFF REPORT: Important Events on Shift:patient has bowel prep for EGD and Colonoscopy tomorrow. Patient Status: stable Diet: Clear liquid until midnight then NPO Pending Orders: Pending Results/Labs: Pending MD notification: Latest Vital Signs: Temperature 97.3 , Pulse 83 , B/P 121 /67 , Respiratory Rate 20 , O2 SAT 98 , Room Air, O2 Flow Rate . Vital Sign Comment: EKG Rhythm: Sinus Rhythm Rhythm change?: N MD Notified?: - MD Response: Latest Munguia Fall Score: 55 Fall Risk: High Risk Safety Measures: Call light Within Reach, Bed Alarm Zone 2, Side Rails Side Rails x2, Bed position Low and Locked. Fall Precautions: Yellow Socks Patient Fall Education Report given to PASCUAL Clarke.
[2020-09-26 20:00] VITALS: BP 118/60
--- NOTE | 2020-09-26 20:00 | NUR ---
NURSE NOTES: Pt received from PASCUAL Muhammad. Pt is resting comfortably in bed and denies any pain. Pt is ambulatory with assistance and A/Ox4. Pt is is breathing unlabored on RA. Pt is on cardiac monitoring SR and asymptomatic. Pt has LFA 20G running D41/2NS at 60ml/hr patent with skin dry and intact. Pt is on clear liquid diet and NPO after Midnight. Bed is locked in lowest position and call light is within reach. Will continue to monitor.
[2020-09-26] MEDS: Pantoprazole Inj IVP SCH (21:45)
[2020-09-26] MEDS ORDERED: D5 1/2NS 1000ml IV ONE (21:45)
--- NOTE | 2020-09-26 23:30 | Cardiology Progress Note ---
Assessment/Plan Assessment/Plan The patient is seen and examined, full consult note will be dictated shortly. Objective Last 24 Hour Vital Signs Date Time Temp Pulse Resp B/P (MAP) Pulse Ox O2 Delivery O2 Flow Rate FiO2 09/26/20 16:00 83 09/26/20 15:35 97.3 83 20 121/67 (85) 98 09/26/20 12:00 68 09/26/20 11:37 96.8 74 20 110/61 (77) 97 09/26/20 08:29 Room Air 09/26/20 08:00 96.8 76 18 113/60 (77) 96 09/26/20 08:00 75 09/26/20 04:00 86 09/26/20 04:00 97.8 88 16 121/70 (87) 99 09/26/20 00:00 97 09/26/20 00:00 97.8 110 18 110/68 (82) 99 Intake and Output 09/25/20 09/26/20 18:59 06:59 Intake Total 2404 ml Output Total 1000 ml Balance 1404 ml IV Total 2404 ml Output Urine Total 1000 ml # Voids 1 Laboratory Tests Test 09/26/20 08:41 White Blood Count 8.4 K/UL (4.8-10.8) Red Blood Count 3.66 M/UL (4.70-6.10) L Hemoglobin 12.1 G/DL (14.2-18.0) L Hematocrit 38.1 % (42.0-52.0) L Mean Corpuscular Volume 104 FL (80-99) H Mean Corpuscular Hemoglobin 33.1 PG (27.0-31.0) H Mean Corpuscular Hemoglobin Concent 31.8 G/DL (32.0-36.0) L Red Cell Distribution Width 15.2 % (11.6-14.8) H Platelet Count 127 K/UL (150-450) L Mean Platelet Volume 9.4 FL (6.5-10.1) Neutrophils (%) (Auto) 65.3 % (45.0-75.0) Lymphocytes (%) (Auto) 22.0 % (20.0-45.0) Monocytes (%) (Auto) 7.7 % (1.0-10.0) Eosinophils (%) (Auto) 4.0 % (0.0-3.0) H Basophils (%) (Auto) 1.0 % (0.0-2.0) Sodium Level 141 MMOL/L (136-145) Potassium Level 3.6 MMOL/L (3.5-5.1) Chloride Level 111 MMOL/L (98-107) H Carbon Dioxide Level 23 MMOL/L (21-32) Anion Gap 7 mmol/L (5-15) Blood Urea Nitrogen 12 mg/dL (7-18) Creatinine 0.9 MG/DL (0.55-1.30) Estimat Glomerular Filtration Rate > 60 mL/min (>60) Glucose Level 90 MG/DL (74-106) Calcium Level 7.9 MG/DL (8.5-10.1) L Amylase Level 80 U/L (25-115) Lipase 469 U/L (73-393) H Microbiology Date/Time Source Procedure Growth Status 09/25/20 21:35 Rectum Received 09/25/20 19:45 Nasopharynx SARS-CoV-2 RdRp Gene Assay - Final Complete Dhruv Silveira MD Sep 26, 2020 23:30
[2020-09-27] VITALS (11 sets, daily range): BP systolic 96–120; BP diastolic 52–74
[2020-09-27 07:34] LABS: BASOPHILS % (AUTO) 2.4 % (0.0-2.0); EOSINOPHILS % (AUTO) 5.4 % (0.0-3.0); HEMATOCRIT 32.4 % (42.0-52.0); HEMOGLOBIN 10.8 G/DL (14.2-18.0); LYMPHOCYTES % (AUTO) 20.6 % (20.0-45.0); MEAN CORPUSCULAR VOLUME 101 FL (80-99); MONOCYTES % (AUTO) 7.3 % (1.0-10.0); NEUTROPHILS % (AUTO) 64.3 % (45.0-75.0); PLATELET COUNT 115 K/UL (150-450); RED BLOOD COUNT 3.22 M/UL (4.70-6.10); RED CELL DISTRIBUTION WIDTH 14.7 % (11.6-14.8); WHITE BLOOD COUNT 7.4 K/UL (4.8-10.8)
--- NOTE | 2020-09-27 07:46 | NUR ---
NURSE NOTES: Received report from Thaddeus/RN. PT sitting up in bed, getting the vitals signs done by the VESSEL SCRAPPER. On room air, no distress or SOB noted. Able to make needs known. Pt is NPO, schedule to have an EGD today, but consent hasn't been signed. Pt requesting to talked to the Dr before signing. IV on left FA 22G running D5 1/2NS @60ml/hr. Bed in lowest position and locked. Call light within reach, encouraged to use it when need it. Side rails up X2. Will continue plan of care.
--- NOTE | 2020-09-27 07:56 | NUR ---
NURSE HAND-OFF REPORT: Important Events on Shift:Pt on NPO diet after midnight for EGD procedure Patient Status: Stable Diet: NPO Pending Orders: EGD and colonoscopy Pending Results/Labs: Pending MD notification: Latest Vital Signs: Temperature 98.8 , Pulse 83 , B/P 111 /52 , Respiratory Rate 24 , O2 SAT 99 , Room Air, O2 Flow Rate . Vital Sign Comment: VSS EKG Rhythm: Sinus Rhythm Rhythm change?: N MD Notified?: - MD Response: Latest Munguia Fall Score: 55 Fall Risk: High Risk Safety Measures: Call light Within Reach, Bed Alarm Zone 2, Side Rails Side Rails x2, Bed position Low and Locked. Fall Precautions: Yellow Socks Patient Fall Education Report given to PASCUAL Chavez.
[2020-09-27 08:12] LABS: % IRON SATURATION 94 % (15-50); IRON 100 ug/dL (50-175); TOTAL IRON BINDING CAPACITY 106 ug/dL (250-450)
[2020-09-27 08:23] LABS: ALANINE AMINOTRANSFERASE 29 U/L (12-78); ALBUMIN 1.9 G/DL (3.4-5.0); ALBUMIN/GLOBULIN RATIO 0.4 (1.0-2.7); ALKALINE PHOSPHATASE 92 U/L (46-116); ANION GAP 9 mmol/L (5-15); ASPARTATE AMINO TRANSFERASE 60 U/L (15-37); BILIRUBIN,TOTAL 4.2 MG/DL (0.2-1.0); BLOOD UREA NITROGEN 9 mg/dL (7-18); CALCIUM 7.5 MG/DL (8.5-10.1); CARBON DIOXIDE 24 MMOL/L (21-32); CHLORIDE 106 MMOL/L (98-107); CREATININE 0.8 MG/DL (0.55-1.30); POTASSIUM 3.2 MMOL/L (3.5-5.1); SODIUM 138 MMOL/L (136-145)
[2020-09-27 08:24] LABS: BILIRUBIN,DIRECT 2.2 MG/DL (0.0-0.3)
[2020-09-27] MEDS: PARoxetine HCL 10mg tab ORAL SCH (08:33)
[2020-09-27] MEDS: Docusate 100mg cap ORAL SCH (08:33)
[2020-09-27] MEDS: D5 1/2NS 1,000 ML IV SCH (08:35)
--- NOTE | 2020-09-27 09:00 | NUR ---
PT NOTE Attempted to see patient for PT treatment. Patient declined to participate with PT, scheduled for EGD and colonoscopy today. Kathy GARNER notified, will follow.
--- NOTE | 2020-09-27 11:13 | General Progress Note ---
Progress Note Progress Note [id number] full note dictated Sushila Sweeney MD Sep 27, 2020 11:13
--- NOTE | 2020-09-27 11:41 | Anethesia Preoperative Eval ---
Anesthesia Pre-op PMH/ROS General Date of Evaluation: Sep 27, 2020 Time of Evaluation: 11:35 Anesthesiologist: Greer ASA Score: ASA 3 Mallampati Score Class I : Soft palate, uvula, fauces, pillars visible Class II: Soft palate, uvula, fauces visible Class III: Soft palate, base of uvula visible Class IV: Only hard plate visible Mallampati Classification: Class II Surgeon: Kellen Diagnosis: GI bleed Surgical Procedure: EGD Colonoscopy Anesthesia History: none Social History: smoking - h/o, alcohol use - h/o abuse Family History: no anesthesia problems Allergies: Coded Allergies: PENICILLINS (Unverified Allergy, Unknown, 02/01/15) Medications: see eMAR Patient NPO?: Yes Past Medical History Cardiovascular: Reports: HTN, CAD - s/p CABG; Denies: KS, valve dz, arrhythmia, other Pulmonary: Denies: asthma, COPD, MARLENY, other Gastrointestinal/Genitourinary: Reports: GERD; Denies: CRI, ESRD, other Neurologic/Psychiatric: Reports: dementia - mild; Denies: CVA, depression/anxiety, TIA, other Endocrine: Reports: hypothyroidism; Denies: DM, steroids, other HEENT: Reports: cataract (L), cataract (R) - s/p Sxs; Denies: glaucoma, BIG SANDY (L), BIG SANDY (R), other Hematology/Immune: Reports: anemia - mild; Denies: DVT, bleeding disorder, other Musculoskeletal/Integumentary: Reports: OA; Denies: RA, DJD, DDD, edema, other Other: other - malnourished PMH Narrative: as above PSxH Narrative: see H&P Anesthesia Pre-op Phys. Exam Physician Exam Last Vital Signs Date Time Temp Pulse Resp B/P (MAP) Pulse Ox O2 Delivery O2 Flow Rate FiO2 09/27/20 08:00 97.3 77 20 107/59 (75) 92 09/26/20 21:00 Room Air Constitutional: NAD Neurologic: CN 2-12 intact Cardiovascular: RRR, no M/R/G Respiratory: CTA Airway Exam Mallampati Score: Class II MO: limited Neck: stiff ROM: limited Teeth: missing Dentures: no upper, no lower Anesthesia Pre-op A/P Labs Hematology Test 09/27/20 06:45 White Blood Count 7.4 K/UL (4.8-10.8) Red Blood Count 3.22 M/UL (4.70-6.10) L Hemoglobin 10.8 G/DL (14.2-18.0) L Hematocrit 32.4 % (42.0-52.0) L Mean Corpuscular Volume 101 FL (80-99) H Mean Corpuscular Hemoglobin 33.4 PG (27.0-31.0) H Mean Corpuscular Hemoglobin Concent 33.2 G/DL (32.0-36.0) Red Cell Distribution Width 14.7 % (11.6-14.8) Platelet Count 115 K/UL (150-450) L Mean Platelet Volume 9.9 FL (6.5-10.1) Neutrophils (%) (Auto) 64.3 % (45.0-75.0) Lymphocytes (%) (Auto) 20.6 % (20.0-45.0) Monocytes (%) (Auto) 7.3 % (1.0-10.0) Eosinophils (%) (Auto) 5.4 % (0.0-3.0) H Basophils (%) (Auto) 2.4 % (0.0-2.0) H Chemistry Test 09/27/20 06:45 Sodium Level 138 MMOL/L (136-145) Potassium Level 3.2 MMOL/L (3.5-5.1) L Chloride Level 106 MMOL/L (98-107) Carbon Dioxide Level 24 MMOL/L (21-32) Anion Gap 9 mmol/L (5-15) Blood Urea Nitrogen 9 mg/dL (7-18) Creatinine 0.8 MG/DL (0.55-1.30) Estimat Glomerular Filtration Rate > 60 mL/min (>60) Glucose Level 88 MG/DL (74-106) Calcium Level 7.5 MG/DL (8.5-10.1) L Iron Level 100 ug/dL (50-175) Total Iron Binding Capacity 106 ug/dL (250-450) L Percent Iron Saturation 94 % (15-50) H Unsaturated Iron Binding 6 ug/dL (112-346) L Total Bilirubin 4.2 MG/DL (0.2-1.0) H Direct Bilirubin 2.2 MG/DL (0.0-0.3) H Aspartate Amino Transf (AST/SGOT) 60 U/L (15-37) H Alanine Aminotransferase (ALT/SGPT) 29 U/L (12-78) Alkaline Phosphatase 92 U/L (46-116) Total Protein 6.4 G/DL (6.4-8.2) Albumin 1.9 G/DL (3.4-5.0) L Globulin 4.5 g/dL Albumin/Globulin Ratio 0.4 (1.0-2.7) L Amylase Level 62 U/L (25-115) Lipase 279 U/L (73-393) Carcinoembryonic Antigen Pending Vitamin B12 Level 918 PG/ML (193-986) Folate 12.2 NG/ML (8.6-58.9) Risk Assessment & Plan Assessment: ASA 4 Plan: MAC Status Change Before Surgery: Ankur Delgadillo MD Sep 27, 2020 11:41
--- NOTE | 2020-09-27 12:04 | Infectious Diseases Prog Note ---
Assessment/Plan Assessment: Afebrile NO leukocytosis -u/a wbc 10-15, nit neg, leuk +1 Bloody diarrhea- r/o infectious vs inflammatory colitis, malignancy, diverticular bleed -MRI abd: No evidence of gallstones. Dilated common bile duct, without evidence of downstream obstructive lesion or choledocholithiasis. Sign ificance/etiology uncertain, may be on the basis of senescent changes. Note absence of intrahepatic biliary ductal dilatation. Correlate with liver function tests. Trace free intraperitoneal fluid. Right-sided pleural effusion. Diverticulitis bladder. Incidental finding bilateral renal cysts -Abd US : Contracted gallbladder with no identifiable stones. Extrahepatic biliary ductal dilatation, consider MRCP to evaluate for choledocholithiasis. -elevated lipase GERD anxiety partial colectomy Plan: -Continue to monitor off abx unless febrile, leukocytosis, and/or HD instability -f/u cx -Monitor CBC/CMP, temperatures -f/u Cdiff, stool cx -GI f/u- for EGD/COlo today Thank you for consulting [facility]. Will continue to follow along with you. Discussed with RN. Subjective Allergies: Coded Allergies: PENICILLINS (Unverified Allergy, Unknown, 02/01/15) afebrile no leukocytosis Objective Last 24 Hour Vital Signs Date Time Temp Pulse Resp B/P (MAP) Pulse Ox O2 Delivery O2 Flow Rate FiO2 09/27/20 08:00 97.3 77 20 107/59 (75) 92 09/27/20 08:00 73 09/27/20 04:00 98.8 83 24 111/52 (71) 99 09/27/20 04:00 75 09/27/20 00:00 70 09/27/20 00:00 97.9 69 20 115/68 (84) 93 09/26/20 21:00 Room Air 09/26/20 20:00 97.8 65 22 118/60 (79) 100 09/26/20 16:00 83 09/26/20 15:35 97.3 83 20 121/67 (85) 98 09/26/20 12:00 68 Height (Feet): 5 Height (Inches): 10.00 Weight (Pounds): 55 HEENT: Normocephalic and atraumatic. Sclerae are anicteric. NECK: Supple. No evidence of obvious lymphadenopathy. CARDIOVASCULAR: Regular rate and rhythm. Plus S1-S2. LUNGS: Decreased breath sounds bilaterally based on the supine exam. ABDOMEN: Soft, nontender. No rebound. No guarding. No peritoneal sign. There is a scar from prior abdominal surgery. EXTREMITIES: No cyanosis, no clubbing, no edema. Microbiology Date/Time Source Procedure Growth Status 09/25/20 21:35 Rectum Received 09/25/20 19:45 Nasopharynx SARS-CoV-2 RdRp Gene Assay - Final Complete Laboratory Tests Test 09/27/20 06:45 White Blood Count 7.4 K/UL (4.8-10.8) Red Blood Count 3.22 M/UL (4.70-6.10) L Hemoglobin 10.8 G/DL (14.2-18.0) L Hematocrit 32.4 % (42.0-52.0) L Mean Corpuscular Volume 101 FL (80-99) H Mean Corpuscular Hemoglobin 33.4 PG (27.0-31.0) H Mean Corpuscular Hemoglobin Concent 33.2 G/DL (32.0-36.0) Red Cell Distribution Width 14.7 % (11.6-14.8) Platelet Count 115 K/UL (150-450) L Mean Platelet Volume 9.9 FL (6.5-10.1) Neutrophils (%) (Auto) 64.3 % (45.0-75.0) Lymphocytes (%) (Auto) 20.6 % (20.0-45.0) Monocytes (%) (Auto) 7.3 % (1.0-10.0) Eosinophils (%) (Auto) 5.4 % (0.0-3.0) H Basophils (%) (Auto) 2.4 % (0.0-2.0) H Sodium Level 138 MMOL/L (136-145) Potassium Level 3.2 MMOL/L (3.5-5.1) L Chloride Level 106 MMOL/L (98-107) Carbon Dioxide Level 24 MMOL/L (21-32) Anion Gap 9 mmol/L (5-15) Blood Urea Nitrogen 9 mg/dL (7-18) Creatinine 0.8 MG/DL (0.55-1.30) Estimat Glomerular Filtration Rate > 60 mL/min (>60) Glucose Level 88 MG/DL (74-106) Calcium Level 7.5 MG/DL (8.5-10.1) L Iron Level 100 ug/dL (50-175) Total Iron Binding Capacity 106 ug/dL (250-450) L Percent Iron Saturation 94 % (15-50) H Unsaturated Iron Binding 6 ug/dL (112-346) L Total Bilirubin 4.2 MG/DL (0.2-1.0) H Direct Bilirubin 2.2 MG/DL (0.0-0.3) H Aspartate Amino Transf (AST/SGOT) 60 U/L (15-37) H Alanine Aminotransferase (ALT/SGPT) 29 U/L (12-78) Alkaline Phosphatase 92 U/L (46-116) Total Protein 6.4 G/DL (6.4-8.2) Albumin 1.9 G/DL (3.4-5.0) L Globulin 4.5 g/dL Albumin/Globulin Ratio 0.4 (1.0-2.7) L Amylase Level 62 U/L (25-115) Lipase 279 U/L (73-393) Carcinoembryonic Antigen Pending Vitamin B12 Level 918 PG/ML (193-986) Folate 12.2 NG/ML (8.6-58.9) Current Medications Medications (Trade) Dose Ordered Sig/[place] Route PRN Reason Start Time Stop Time Status Last Admin Dose Admin Acetaminophen (Tylenol) 650 mg Q4H PRN ORAL Mild Pain (Pain Scale 1-3) 09/25/20 23:00 10/25/20 22:59 Al Hydroxide/Mg Hydroxide (Mylanta) 30 ml Q6H PRN ORAL HEART BURN 09/25/20 23:00 10/25/20 22:59 Bisacodyl (Dulcolax) 10 mg DAILYPRN PRN RECTAL Constipation 09/25/20 23:00 12/24/20 22:59 Clonidine HCl (Catapres Tab) 0.1 mg Q6H PRN ORAL For High Blood Pressure 09/25/20 23:00 12/24/20 22:59 Dextrose/Sodium Chloride 1,000 ml @ 60 mls/hr [id number] IV 09/25/20 23:15 10/25/20 23:14 09/27/20 08:35 Docusate Sodium (Colace) 100 mg DAILY ORAL 09/26/20 09:00 10/26/20 08:59 09/27/20 08:33 Gabapentin (Neurontin) 300 mg TID ORAL 09/26/20 09:00 10/26/20 08:59 09/27/20 08:33 Lorazepam (Ativan) 1 mg Q12H PRN ORAL For Anxiety 09/25/20 23:00 10/02/20 22:59 09/25/20 23:16 Magnesium Hydroxide (Mom) 30 ml DAILY PRN ORAL Constipation 09/25/20 23:00 10/25/20 22:59 Metoprolol Tartrate (Lopressor) 5 mg Q5MIN X 3 IVP 09/25/20 20:45 12/24/20 20:44 Morphine Sulfate (Morphine Sulfate) 2 mg Q4H PRN IVP For Pain 09/25/20 22:45 10/02/20 22:44 Multivitamins (Multivitamins) 1 tab DAILY ORAL 09/26/20 09:00 10/26/20 08:59 09/27/20 08:32 Ondansetron HCl (Zofran) 4 mg Q4H PRN IVP Nausea & Vomiting 09/25/20 22:45 10/25/20 22:44 Pantoprazole (Protonix) 40 mg DAILY ORAL 09/26/20 09:00 10/26/20 08:59 09/26/20 21:07 Pantoprazole (Protonix) 40 mg NOW IVP 09/25/20 21:45 10/25/20 21:44 09/26/20 21:45 Paroxetine HCl (Paxil) 10 mg DAILY ORAL 09/26/20 09:00 10/26/20 08:59 09/27/20 08:33 Dilcia Celestin M.D. Sep 27, 2020 12:04
--- NOTE | 2020-09-27 12:43 | Pre-Procedure Note/Attestation ---
Pre-Procedure Note/Attestation Complete Prior to Procedure Planned Procedure: not applicable Procedure Narrative: esophagogastroduodenoscopy and colonoscopy Indications for Procedure Pre-Operative Diagnosis: gib Attestation I attest that I discussed the nature of the procedure; its benefits; risks and complications; and alternatives (and the risks and benefits of such alternatives), prior to the procedure, with the patient (or the patient's legal premium representative). I attest that, if there was a reasonable possibility of needing a blood transfusion, the patient (or the patient's legal premium representative) was given the [facility] standardized written summary, pursuant to the [place] Anon Raices Blood Safety Act ([place] Health and Safety Code # 1645, as amended). I attest that I re-evaluated the patient just prior to the surgery and that there has been no change in the patient's H&P, except as documented below: Geremias Foreman MD Sep 27, 2020 12:43
[2020-09-27] MEDS ORDERED: fentaNYL 100 mcg/2 mL IV ONE (12:45)
[2020-09-27] MEDS ORDERED: NS 500ML IVPB ONE (12:50)
--- NOTE | 2020-09-27 13:02 | Endoscopy Procedure Note ---
Endoscopy Procedure Note General Indication for Procedure: gib Procedures Performed: EGD, colonoscopy Operative Findings/Diagnosis: gastritis, hemorrhois Specimen: yes Pt Tolerated Procedure Well: Yes Estimated Blood Loss: none Anesthesia Anesthesiologist: aries Anesthesia: MAC Inserted Devices Implant(s) used?: No Quality Quality of Bowel Preparation: Good Did scope reach the cecum?: Yes Was there any complications?: No GI Core Measures 50 yrs or older w/o bx or poly: Not Applicable 10yrs. F/U recommended: Not Applicable Geremias Foremna MD Sep 27, 2020 13:02
--- NOTE | 2020-09-27 13:25 | General Progress Note ---
Subjective Constitutional: Reports: weakness Allergies: Coded Allergies: PENICILLINS (Unverified Allergy, Unknown, 02/01/15) All Systems: reviewed and negative except above Subjective calm awaitng colonoscopy Objective Last 24 Hour Vital Signs Date Time Temp Pulse Resp B/P (MAP) Pulse Ox O2 Delivery O2 Flow Rate FiO2 09/27/20 12:00 98.0 73 20 100/58 (72) 95 09/27/20 12:00 72 09/27/20 09:00 Room Air 09/27/20 08:00 97.3 77 20 107/59 (75) 92 09/27/20 08:00 73 09/27/20 04:00 98.8 83 24 111/52 (71) 99 09/27/20 04:00 75 09/27/20 00:00 70 09/27/20 00:00 97.9 69 20 115/68 (84) 93 09/26/20 21:00 Room Air 09/26/20 20:00 97.8 65 22 118/60 (79) 100 09/26/20 16:00 83 09/26/20 15:35 97.3 83 20 121/67 (85) 98 Intake and Output 09/26/20 09/27/20 19:00 07:00 Intake Total 1300 ml Output Total 400 ml 700 ml Balance 900 ml -700 ml Intake Oral 1300 ml Output Urine Total 400 ml 700 ml # Bowel Movements 1 8 Laboratory Tests 09/27/20 06:45: White Blood Count 7.4, Red Blood Count 3.22L, Hemoglobin 10.8L, Hematocrit 32.4L , Mean Corpuscular Volume 101H, Mean Corpuscular Hemoglobin 33.4H, Mean Corpuscular Hemoglobin Concent 33.2, Red Cell Distribution Width 14.7, Platelet Count 115L, Mean Platelet Volume 9.9, Neutrophils (%) (Auto) 64.3, Lymphocytes (%) (Auto) 20.6, Monocytes (%) (Auto) 7.3, Eosinophils (%) (Auto) 5.4H, Basophils (%) (Auto) 2.4H, Sodium Level 138, Potassium Level 3.2L, Chloride Level 106, Carbon Dioxide Level 24, Anion Gap 9, Blood Urea Nitrogen 9, Creatinine 0.8, Estimat Glomerular Filtration Rate > 60, Glucose Level 88, Calcium Level 7.5L, Iron Level 100, Total Iron Binding Capacity 106L, Percent Iron Saturation 94H, Unsaturated Iron Binding 6L, Total Bilirubin 4.2H, Direct Bilirubin 2.2H, Aspartate Amino Transf (AST/SGOT) 60H, Alanine Aminotransferase (ALT/SGPT) 29, Alkaline Phosphatase 92, Total Protein 6.4, Albumin 1.9L, Globulin 4.5, Albumin/Globulin Ratio 0.4L, Amylase Level 62, Lipase 279, Carcinoembryonic Antigen [Pending], Vitamin B12 Level 918, Folate 12.2 Height (Feet): 5 Height (Inches): 10.00 Weight (Pounds): 55 General Appearance: lethargic EENT: normal ENT inspection Neck: normal alignment Cardiovascular: normal peripheral pulses, normal rate, regular rhythm Respiratory/Chest: chest wall non-tender, lungs clear, normal breath sounds Abdomen: normal bowel sounds, non tender, soft Extremities: normal inspection Edema: no edema noted Arm (L), no edema noted Arm (R), no edema noted Leg (L), no edema noted Leg (R), no edema noted Pedal (L), no edema noted Pedal (R), no edema noted Generalized Neurologic: motor weakness Skin: normal pigmentation, warm/dry Assessment/Plan Problem List: (1) HTN (hypertension) ICD Codes: I10 - Essential (primary) hypertension SNOMED: 30550717 (2) Afib ICD Codes: I48.91 - Unspecified atrial fibrillation SNOMED: 96537742 (3) Malnutrition ICD Codes: E46 - Unspecified protein-calorie malnutrition SNOMED: 77934972 (4) Anemia ICD Codes: D64.9 - Anemia, unspecified SNOMED: 403030366 (5) UTI (urinary tract infection) ICD Codes: N39.0 - Urinary tract infection, site not specified SNOMED: 12719965 (6) Diarrhea ICD Codes: R19.7 - Diarrhea, unspecified SNOMED: 74231072 (7) Pancreatitis ICD Codes: K85.90 - Acute pancreatitis without necrosis or infection, unspecified SNOMED: 62866663 (8) GI bleed ICD Codes: K92.2 - Gastrointestinal hemorrhage, unspecified SNOMED: 41187780 Status: unchanged Assessment/Plan: pt diet abx gi f/u cbc bmp am Sarkis Butts DO Sep 27, 2020 13:25
--- NOTE | 2020-09-27 13:26 | Immediate Post-Op Evaluation ---
Immediate Post-Op Evalulation Immediate Post-Op Evalulation Procedure: EGD Colonoscopy polypectomy Date of Evaluation: Sep 27, 2020 Time of Evaluation: 13:25 IV Fluids: 400 Blood Products: none Estimated Blood Loss: none Urinary Output: none Blood Pressure Systolic: 112 Blood Pressure Diastolic: 64 Pulse Rate: 72 Respiratory Rate: 20 O2 Sat by Pulse Oximetry: 99 Temperature (Fahrenheit): 97.8 Pain Score (1-10): 1 Nausea: No Vomiting: No Complications none Patient Status: reacts, patent, none Hydration Status: adequate Ankur Butterfield MD Sep 27, 2020 13:26
--- NOTE | 2020-09-27 13:29 | NUR ---
CASE MANAGEMENT:REVIEW 75 YR OLD MALE BIBA FROM [facility] CC: BLOOD IN STOOL SI: GIB 98.0 98 16 111/60 100% ON RA H/H-12.3/37.8 PLT-141 K-3.4 LIPASE+593 IS: 1L NS BOLUS X2 K-DUR PO TYPE AND SCREEN : TO TELEMETRY
--- NOTE | 2020-09-27 13:33 | NUR ---
CASE MANAGEMENT:REVIEW 09/27/20 SI: GIB 97.3 77 20 107/59 97% on 3l/nc H/H-10.8/32.4 PLT-115 K-3.2 IS: IVF@60/HR MVI PO QD PAXIL PO QD NEURONTIN PO TID : TELEMETRY STATUS DCP: FROM [facility] PLAN: EGD/COLONOSCOPY
--- NOTE | 2020-09-27 13:47 | 48 Hour Post Anesthesia Eval ---
Post Anesthesia Evaluation Procedure: EGD Colonoscopy polypectomy Date of Evaluation: Sep 27, 2020 Time of Evaluation: 13:46 Blood Pressure Systolic: 112 0: 72 Pulse Rate: 68 Respiratory Rate: 20 Temperature (Fahrenheit): 97.6 O2 Sat by Pulse Oximetry: 98 Airway: patent Nausea: No Vomiting: No Pain Intensity: 1 Hydration Status: adequate Cardiopulmonary Status: stable Mental Status/LOC: patient returned to baseline Follow-up Care/Observations: n/a Post-Anesthesia Complications: none Follow-up care needed: N/A Ankur Butterfield MD Sep 27, 2020 13:47
[2020-09-27] MEDS: D5 1/2NS w/KCl 40meq 1000ml 1,000 ML IV SCH (14:24)
--- NOTE | 2020-09-27 15:30 | Consultation ---
DATE OF CONSULTATION: 09/26/2020 PSYCHOTHERAPY CONSULTATION NOTE CONSULTING PHYSICIAN: Low Hodge PsyD TREATING ATTENDING PHYSICIAN: Sarkis Butts D.O. HISTORY OF PRESENT ILLNESS: The patient is a 75-year-old male patient who was brought into the hospital for bloody stools diarrhea. He has a history of anterior status post partial colectomy. The patient has been very helpless. For these reasons, he was referred for psychotherapeutic services. When I assessed the patient, the patient states that he has not been feeling well. He states, "I am just do not feel good." The patient current condition. He is very cooperative. He is oriented to person, place, time, and the patient was able to . He does have a history of anxiety and he states that he does have anxiety, feelings of helplessness, however, denies suicidal or homicidal thoughts of ideation, mostly anxiety and helplessness into his medical condition according to his thoughts. PAST MEDICAL HISTORY: Includes a history of pancreatitis and diarrhea. ALLERGIES: The patient has allergies to penicillin. SUBSTANCE ABUSE HISTORY: Denies history of alcohol use, illicit substance use. PSYCHIATRIC HISTORY: He denies history of mental illness. SOCIAL HISTORY: The patient is a 75-year-old male patient from [facility], financially sustained through [facility]. anxious and helpless. DIAGNOSES: 1. Rule out major depressive disorder, recurrent, moderate without psychotic features and generalized anxiety disorder. 2. Pancreatitis. 3. Psychosocial stressors, moderate. I ASSESSED THE PATIENT AND PROVIDED HIM WITH: 4. Supportive psychotherapy encouraging the positive thoughts positive communication skills, trying him with cognitive behavioral therapy addressing feelings of helplessness, anxiety, and depression . Oriented to person, place, time, and health symptoms insight behavior diagnosis. PLAN: Plan is to maintain medication compliance with positive coping skills and stabilizing the thoughts and behavior. Psychotherapy service 45 minutes. This clinician has reviewed the patient's chart. Discussed the treatment with treatment team. Low Hodge PsyD. DR: Wil JOB#: [id number] CC:
[2020-09-27] MEDS ORDERED: NEURONTIN300 MG ORAL (15:34)
[2020-09-27] MEDS ORDERED: BISACODYL10 M1 RC (15:34)
[2020-09-27] MEDS ORDERED: ACETAMINOPHEN325 M1 ORAL (15:34)
--- NOTE | 2020-09-27 17:30 | Procedure Note ---
DATE OF PROCEDURE: 09/27/2020 SURGEON: Geremias Foreman MD PROCEDURE: Upper endoscopy with biopsy, colonoscopy with polypectomy and biopsy. ANESTHESIA: Per Dr. Butterfield. INSTRUMENT: Olympus adult flexible upper endoscope and colonoscope. REASON FOR PROCEDURE: The procedure, risks, benefits, and possible consequences, including hemorrhage, aspiration, perforation and infection, and alternative treatments, were explained to the patient/legal guardian by Dr. Geremias Foreman and the patient/legal guardian understood and accepted these risks. INDICATION: Anemia, GI bleeding. DESCRIPTION OF PROCEDURE: After informed consent was obtained and patient was adequately sedated, Olympus upper endoscope was advanced from mouth and second portion of duodenum and retroflexion was performed in the stomach. Patient has evidence of diffuse gastritis. Random biopsies from antrum was obtained to rule out H. pylori infection. Patient also had 1 or 2 inlet patches in the upper esophagus. At this time, the upper endoscope was retrieved and patient was turned over for colonoscopy. First, rectal exam was performed, which was positive for internal hemorrhoids. Then the scope was advanced from rectum to the anastomosis. The patient had prior history of partial colectomy and had anastomosis. Quality of prep was poor. Patient had two polyps seen in this examination. Both of them in the transverse colon, 1 was measured roughly about 6 mm, removed with hot snare polypectomy technique. The other one was small, removed with cold biopsy forceps technique. Patient also evidence of diverticulosis in the left colon. There was no evidence of any active bleeding, but again the quality of prep was very poor. Retroflexion of rectum showed evidence of internal hemorrhoids. SUMMARY OF FINDINGS: 1. Gastritis. 2. Inlet patch. 3. Two colonic polyps, removed. 4. Poor colonic prep. 5. Diverticulosis of the left colon. 6. Internal hemorrhoids. RECOMMENDATIONS: 1. Follow up biopsy results and treat accordingly. 2. Patient will need a repeat colonoscopy if there are recurrent signs and symptoms of GI bleeding. Geremias Foreman M.D. DR: ALYCE JOB#: [id number] CC:
--- NOTE | 2020-09-27 18:22 | NUR ---
NURSE NOTES: Patient received via bed to room 303-1 on RA, in stable condition. Patient AOx4, calm. Respirations even/unlabored. Denies pain, SOB, NV. Skin assessed, intact, sacral pink noted, will endorse to next shift to apply Optifoam. IV D5 1/2 NS +40 KCL at 60ml/hr, to LFA, site asymptomatic. Belongings reviewed, all at bedside. Oriented patient to room, call light and surroundings. Call light in reach, bed in lowest position, will continue to monitor. Report received from Kathy GARNER.
--- NOTE | 2020-09-27 18:41 | NUR ---
TRANSFER TO FLOOR: Patient transferred to [facility] per Dr Butts order. Report given to Soni/RN. Pt in stable condition. clarity specialists removed. Belongings and medications given to receiving nurse.
--- NOTE | 2020-09-27 19:42 | NUR ---
NURSE HAND-OFF: Important Events on Shift:Transfer from [facility] at 1822 Patient Status: stable Diet: Regular Pending Orders: LABS in AM Pending Results/Labs: CBC BMP 09/28 Pending MD notification:none Latest Vital Signs: Temperature 97.9 , Pulse 75 , B/P 99 /54 , Respiratory Rate 20 , O2 SAT 93 , Room Air, O2 Flow Rate 3 . Vital Sign Comment: none Latest Munguia Fall Score: 55 Fall Risk: High Risk Safety Measures: Call light Within Reach, Bed Alarm Zone 2, Side Rails Side Rails x2, Bed position Low and Locked. Fall Precautions: Yellow Socks Patient Fall Education Report given to Bruce RN.
--- NOTE | 2020-09-27 19:43 | NUR ---
NURSE NOTES: The patient is alert and oriented x4, cooperative with his care and does not seem to be in any distress at this time.He is room air with Resp even and unlabored. The patient can ambulate to the bathroom with minimal help.He has a left forearm 20g that is patent and asymptomatic. bed in low and locked position , side rails up X2 and call light with in reach, will continue to monitor as indicated.
[2020-09-28] VITALS: BP 116/71
[2020-09-28 04:00] VITALS: BP 108/83
--- NOTE | 2020-09-28 06:30 | NUR ---
NURSE NOTES: The patient slept for about 7 hrs last night is alert and cooperative with his care.The was no evidence of any distress noted at this time. He was able to ambulate to the bathroom with minimal assistance. Will continue to monitor as indicated.
[2020-09-28] MEDS: D5 1/2NS w/KCl 40meq 1000ml 1,000 ML IV SCH (06:45)
[2020-09-28 06:56] LABS: BASOPHILS % (AUTO) 1.3 % (0.0-2.0); EOSINOPHILS % (AUTO) 3.1 % (0.0-3.0); HEMATOCRIT 37.8 % (42.0-52.0); LYMPHOCYTES % (AUTO) 19.5 % (20.0-45.0); MEAN CORPUSCULAR VOLUME 105 FL (80-99); MONOCYTES % (AUTO) 8.3 % (1.0-10.0); NEUTROPHILS % (AUTO) 67.9 % (45.0-75.0); PLATELET COUNT 140 K/UL (150-450); RED BLOOD COUNT 3.59 M/UL (4.70-6.10); RED CELL DISTRIBUTION WIDTH 15.2 % (11.6-14.8); WHITE BLOOD COUNT 7.6 K/UL (4.8-10.8)
--- NOTE | 2020-09-28 07:10 | NUR ---
NURSE NOTES: Report received from Bruce RN, rounds made. Patient resting in high fowlers position in bed, AOx4, anxious about discharge planning, will follow up with MD and update patient. IV D5 1/2 NS+ 40 KCL at 60 ml/hr to [facility], site asymptomatic. Denies SOB, pain, NV. Call light in reach, bed in lowest position, will continue to monitor.
--- NOTE | 2020-09-28 07:17 | NUR ---
NURSE HAND-OFF: Important Events on Shift: Patient Status: Diet: Pending Orders: Pending Results/Labs: Pending MD notification: Latest Vital Signs: Temperature 97.4 , Pulse 82 , B/P 108 /83 , Respiratory Rate 20 , O2 SAT 97 , Room Air, O2 Flow Rate 3 . Vital Sign Comment: Latest Munguia Fall Score: 55 Fall Risk: High Risk Safety Measures: Call light Within Reach, Bed Alarm Zone 2, Side Rails Side Rails x2, Bed position Low and Locked. Fall Precautions: Yellow Socks Patient Fall Education Report given to .
[2020-09-28 07:27] LABS: ANION GAP 7 mmol/L (5-15); BLOOD UREA NITROGEN 9 mg/dL (7-18); CALCIUM 8.1 MG/DL (8.5-10.1); CARBON DIOXIDE 25 MMOL/L (21-32); CHLORIDE 106 MMOL/L (98-107); CREATININE 0.9 MG/DL (0.55-1.30); POTASSIUM 4.1 MMOL/L (3.5-5.1); SODIUM 138 MMOL/L (136-145)
[2020-09-28 08:00] VITALS: BP 116/67
--- NOTE | 2020-09-28 08:33 | General Progress Note ---
Subjective ROS Limited/Unobtainable: Yes Allergies: Coded Allergies: PENICILLINS (Unverified Allergy, Unknown, 02/01/15) Objective Last 24 Hour Vital Signs Date Time Temp Pulse Resp B/P (MAP) Pulse Ox O2 Delivery O2 Flow Rate FiO2 09/28/20 04:00 97.4 82 20 108/83 (91) 97 09/28/20 00:00 97.9 78 20 116/71 (86) 95 09/27/20 21:00 Room Air 09/27/20 20:00 97.9 76 22 120/74 (89) 96 09/27/20 18:34 97.9 75 20 99/54 (69) 93 09/27/20 16:00 86 09/27/20 16:00 97.1 74 20 96/60 (72) 95 09/27/20 13:47 68 20 98 09/27/20 13:42 97.9 81 22 97/56 98 Room Air 09/27/20 13:32 78 16 99/57 98 Nasal Cannula 3 09/27/20 13:27 76 23 101/57 97 Nasal Cannula 3 09/27/20 13:26 72 20 99 09/27/20 13:22 97.8 80 17 112/61 97 Nasal Cannula 3 09/27/20 12:00 98.0 73 20 100/58 (72) 95 09/27/20 12:00 72 09/27/20 09:00 Room Air Intake and Output 09/27/20 09/28/20 19:00 07:00 Intake Total 960 ml 600 ml Output Total 700 ml 500 ml Balance 260 ml 100 ml Intake Oral 400 ml IV Total 560 ml 600 ml Output Urine Total 700 ml 500 ml # Voids 2 2 # Bowel Movements 3 5 Laboratory Tests 09/28/20 04:50: White Blood Count 7.6, Red Blood Count 3.59L, Hemoglobin 12.0L, Hematocrit 37.8L , Mean Corpuscular Volume 105H, Mean Corpuscular Hemoglobin 33.3H, Mean Corpuscular Hemoglobin Concent 31.6L, Red Cell Distribution Width 15.2H, Platelet Count 140L, Mean Platelet Volume 10.1, Neutrophils (%) (Auto) 67.9, Lymphocytes (%) (Auto) 19.5L, Monocytes (%) (Auto) 8.3, Eosinophils (%) (Auto) 3.1H, Basophils (%) (Auto) 1.3, Sodium Level 138, Potassium Level 4.1, Chloride Level 106, Carbon Dioxide Level 25, Anion Gap 7, Blood Urea Nitrogen 9, Creatinine 0.9, Estimat Glomerular Filtration Rate > 60, Glucose Level 87, Calcium Level 8.1L Height (Feet): 5 Height (Inches): 10.00 Weight (Pounds): 55 General Appearance: alert EENT: normal ENT inspection Neck: supple Cardiovascular: normal rate Respiratory/Chest: decreased breath sounds Abdomen: normal bowel sounds, non tender, soft Extremities: non-tender Assessment/Plan Problem List: (1) Afib ICD Codes: I48.91 - Unspecified atrial fibrillation SNOMED: 01689963 (2) GI bleed ICD Codes: K92.2 - Gastrointestinal hemorrhage, unspecified SNOMED: 92465268 (3) HTN (hypertension) ICD Codes: I10 - Essential (primary) hypertension SNOMED: 68920828 (4) UTI (urinary tract infection) ICD Codes: N39.0 - Urinary tract infection, site not specified SNOMED: 74383395 (5) Malnutrition ICD Codes: E46 - Unspecified protein-calorie malnutrition SNOMED: 47136202 (6) Anemia ICD Codes: D64.9 - Anemia, unspecified SNOMED: 501775757 Status: unchanged Assessment/Plan: s/p EGD and colonoscopy: SUMMARY OF FINDINGS: 1. Gastritis. 2. Inlet patch. 3. Two colonic polyps, removed. 4. Poor colonic prep. 5. Diverticulosis of the left colon. 6. Internal hemorrhoids. stable labs pending discharge Geremias Foreman MD Sep 28, 2020 08:33
--- NOTE | 2020-09-28 08:35 | General Progress Note ---
Subjective Constitutional: Reports: weakness Allergies: Coded Allergies: PENICILLINS (Unverified Allergy, Unknown, 02/01/15) All Systems: reviewed and negative except above Subjective calm wants to go home Objective Last 24 Hour Vital Signs Date Time Temp Pulse Resp B/P (MAP) Pulse Ox O2 Delivery O2 Flow Rate FiO2 09/28/20 04:00 97.4 82 20 108/83 (91) 97 09/28/20 00:00 97.9 78 20 116/71 (86) 95 09/27/20 21:00 Room Air 09/27/20 20:00 97.9 76 22 120/74 (89) 96 09/27/20 18:34 97.9 75 20 99/54 (69) 93 09/27/20 16:00 86 09/27/20 16:00 97.1 74 20 96/60 (72) 95 09/27/20 13:47 68 20 98 09/27/20 13:42 97.9 81 22 97/56 98 Room Air 09/27/20 13:32 78 16 99/57 98 Nasal Cannula 3 09/27/20 13:27 76 23 101/57 97 Nasal Cannula 3 09/27/20 13:26 72 20 99 09/27/20 13:22 97.8 80 17 112/61 97 Nasal Cannula 3 09/27/20 12:00 98.0 73 20 100/58 (72) 95 09/27/20 12:00 72 09/27/20 09:00 Room Air Intake and Output 09/27/20 09/28/20 19:00 07:00 Intake Total 960 ml 600 ml Output Total 700 ml 500 ml Balance 260 ml 100 ml Intake Oral 400 ml IV Total 560 ml 600 ml Output Urine Total 700 ml 500 ml # Voids 2 2 # Bowel Movements 3 5 Laboratory Tests 09/28/20 04:50: White Blood Count 7.6, Red Blood Count 3.59L, Hemoglobin 12.0L, Hematocrit 37.8L , Mean Corpuscular Volume 105H, Mean Corpuscular Hemoglobin 33.3H, Mean Corpuscular Hemoglobin Concent 31.6L, Red Cell Distribution Width 15.2H, Platelet Count 140L, Mean Platelet Volume 10.1, Neutrophils (%) (Auto) 67.9, Lymphocytes (%) (Auto) 19.5L, Monocytes (%) (Auto) 8.3, Eosinophils (%) (Auto) 3.1H, Basophils (%) (Auto) 1.3, Sodium Level 138, Potassium Level 4.1, Chloride Level 106, Carbon Dioxide Level 25, Anion Gap 7, Blood Urea Nitrogen 9, Creatinine 0.9, Estimat Glomerular Filtration Rate > 60, Glucose Level 87, Calcium Level 8.1L Height (Feet): 5 Height (Inches): 10.00 Weight (Pounds): 55 General Appearance: alert EENT: normal ENT inspection Neck: normal alignment Cardiovascular: normal peripheral pulses, normal rate, regular rhythm Respiratory/Chest: chest wall non-tender, lungs clear, normal breath sounds Abdomen: normal bowel sounds, non tender, soft Extremities: normal inspection Edema: no edema noted Arm (L), no edema noted Arm (R), no edema noted Leg (L), no edema noted Leg (R), no edema noted Pedal (L), no edema noted Pedal (R), no edema noted Generalized Neurologic: responsive, motor weakness Skin: normal pigmentation, warm/dry Assessment/Plan Problem List: (1) HTN (hypertension) ICD Codes: I10 - Essential (primary) hypertension SNOMED: 41739791 (2) Afib ICD Codes: I48.91 - Unspecified atrial fibrillation SNOMED: 70366299 (3) Malnutrition ICD Codes: E46 - Unspecified protein-calorie malnutrition SNOMED: 12239066 (4) Anemia ICD Codes: D64.9 - Anemia, unspecified SNOMED: 225745824 (5) UTI (urinary tract infection) ICD Codes: N39.0 - Urinary tract infection, site not specified SNOMED: 74036519 (6) Diarrhea ICD Codes: R19.7 - Diarrhea, unspecified SNOMED: 14205883 (7) Pancreatitis ICD Codes: K85.90 - Acute pancreatitis without necrosis or infection, unspecified SNOMED: 03399052 (8) GI bleed ICD Codes: K92.2 - Gastrointestinal hemorrhage, unspecified SNOMED: 32981795 Status: stable, progressing Assessment/Plan: pt diet abx gi f/u dc cleard by Sarkis Kemp DO Sep 28, 2020 08:35
[2020-09-28] MEDS: PARoxetine HCL 10mg tab ORAL SCH (09:00)
[2020-09-28] MEDS: Docusate 100mg cap ORAL SCH (09:00)
--- NOTE | 2020-09-28 09:04 | Consultation ---
History of Present Illness General Chief Complaint: General Complaint Present Illness Allergies: Coded Allergies: PENICILLINS (Unverified Allergy, Unknown, 02/01/15) Medication History Scheduled Docusate Sodium* (Colace*), 100 MG ORAL DAILY, (Reported) Gabapentin (Neurontin), 300 MG ORAL THREE TIMES A DAY, (Reported) Multivitamin With Minerals (Multivitamins With Minerals*), 1 TAB ORAL DAILY, (Reported) Pantoprazole* (Pantoprazole*), 40 MG ORAL DAILY, (Reported) Scheduled PRN Acetaminophen* (Acetaminophen 325MG Tablet*), 650 MG ORAL Q4H PRN for For Pain, (Reported) Bisacodyl (Bisacodyl), 10 MG RC DAILY PRN for CON, (Reported) Clonidine Hcl* (Catapres*), 0.1 MG ORAL EVERY 6 HOURS PRN for SBP >140, (Reported) Lorazepam* (Ativan*), 1 MG ORAL BID PRN for For Anxiety, (Reported) Mag Hydrox/Aluminum Hyd/Simeth (Mylanta Maximum Strength Liq), 30 ML PO Q6HR PRN for HEARTBURN, (Reported) Magnesium Hydroxide* (Milk Of Magnesia*), 30 ML ORAL DAILY PRN for Constipation, (Reported) Na Phos,M-B/Na Phos,Di-Ba* (Fleet Enema*), 133 ML RECTAL DAILY PRN for Constipation, (Reported) Discontinued Medications Acetaminophen* (Tylenol Extra Strength*), 500 MG ORAL Q6H PRN for Mild Pain/Temp > 100.5, (Reported) Discontinued Reason: Prescription changed Albuterol Sulfate (Ventolin Hfa), 2 PUFFS INH BID, (Reported) Discontinued Reason: Therapy completed Aspirin* (Aspir-Low*), 81 MG ORAL DAILY, (Reported) Discontinued Reason: Therapy completed Bisacodyl* (Dulcolax*), 10 MG ORAL DAILY, (Reported) Discontinued Reason: Prescription changed Gabapentin* (Gabapentin*), 300 MG ORAL THREE TIMES A DAY, (Reported) Discontinued Reason: Prescription changed Paroxetine Hcl* (Paxil*), 10 MG ORAL DAILY, (Reported) Discontinued Reason: Therapy completed Patient History Healthcare decision maker N Resuscitation status Advanced Directive on File Physical Exam Last 24 Hour Vital Signs Date Time Temp Pulse Resp B/P (MAP) Pulse Ox O2 Delivery O2 Flow Rate FiO2 09/28/20 04:00 97.4 82 20 108/83 (91) 97 09/28/20 00:00 97.9 78 20 116/71 (86) 95 09/27/20 21:00 Room Air 09/27/20 20:00 97.9 76 22 120/74 (89) 96 09/27/20 18:34 97.9 75 20 99/54 (69) 93 09/27/20 16:00 86 09/27/20 16:00 97.1 74 20 96/60 (72) 95 09/27/20 13:47 68 20 98 09/27/20 13:42 97.9 81 22 97/56 98 Room Air 09/27/20 13:32 78 16 99/57 98 Nasal Cannula 3 09/27/20 13:27 76 23 101/57 97 Nasal Cannula 3 09/27/20 13:26 72 20 99 09/27/20 13:22 97.8 80 17 112/61 97 Nasal Cannula 3 09/27/20 12:00 98.0 73 20 100/58 (72) 95 09/27/20 12:00 72 09/27/20 09:00 Room Air Intake and Output 09/27/20 09/28/20 19:00 07:00 Intake Total 960 ml 600 ml Output Total 700 ml 500 ml Balance 260 ml 100 ml Intake Oral 400 ml IV Total 560 ml 600 ml Output Urine Total 700 ml 500 ml # Voids 2 2 # Bowel Movements 3 5 Laboratory Tests Test 09/28/20 04:50 White Blood Count 7.6 K/UL (4.8-10.8) Red Blood Count 3.59 M/UL (4.70-6.10) L Hemoglobin 12.0 G/DL (14.2-18.0) L Hematocrit 37.8 % (42.0-52.0) L Mean Corpuscular Volume 105 FL (80-99) H Mean Corpuscular Hemoglobin 33.3 PG (27.0-31.0) H Mean Corpuscular Hemoglobin Concent 31.6 G/DL (32.0-36.0) L Red Cell Distribution Width 15.2 % (11.6-14.8) H Platelet Count 140 K/UL (150-450) L Mean Platelet Volume 10.1 FL (6.5-10.1) Neutrophils (%) (Auto) 67.9 % (45.0-75.0) Lymphocytes (%) (Auto) 19.5 % (20.0-45.0) L Monocytes (%) (Auto) 8.3 % (1.0-10.0) Eosinophils (%) (Auto) 3.1 % (0.0-3.0) H Basophils (%) (Auto) 1.3 % (0.0-2.0) Sodium Level 138 MMOL/L (136-145) Potassium Level 4.1 MMOL/L (3.5-5.1) Chloride Level 106 MMOL/L (98-107) Carbon Dioxide Level 25 MMOL/L (21-32) Anion Gap 7 mmol/L (5-15) Blood Urea Nitrogen 9 mg/dL (7-18) Creatinine 0.9 MG/DL (0.55-1.30) Estimat Glomerular Filtration Rate > 60 mL/min (>60) Glucose Level 87 MG/DL (74-106) Calcium Level 8.1 MG/DL (8.5-10.1) L Height (Feet): 5 Height (Inches): 10.00 Weight (Pounds): 55 Medications Current Medications Medications (Trade) Dose Ordered Sig/Chioma Route PRN Reason Start Time Stop Time Status Last Admin Dose Admin Acetaminophen (Tylenol) 650 mg Q4H PRN ORAL Mild Pain (Pain Scale 1-3) 09/25/20 23:00 10/25/20 22:59 Al Hydroxide/Mg Hydroxide (Mylanta) 30 ml Q6H PRN ORAL HEART BURN 09/25/20 23:00 10/25/20 22:59 Bisacodyl (Dulcolax) 10 mg DAILYPRN PRN RECTAL Constipation 09/25/20 23:00 12/24/20 22:59 Clonidine HCl (Catapres Tab) 0.1 mg Q6H PRN ORAL For High Blood Pressure 09/25/20 23:00 12/24/20 22:59 Dextrose/ Electrolytes 1,000 ml @ 60 mls/hr [id number] IV 09/27/20 14:00 10/27/20 13:59 09/28/20 06:45 Docusate Sodium (Colace) 100 mg DAILY ORAL 09/26/20 09:00 10/26/20 08:59 09/27/20 08:33 Gabapentin (Neurontin) 300 mg TID ORAL 09/26/20 09:00 10/26/20 08:59 09/27/20 18:07 Lorazepam (Ativan) 1 mg Q12H PRN ORAL For Anxiety 09/25/20 23:00 10/02/20 22:59 09/25/20 23:16 Magnesium Hydroxide (Mom) 30 ml DAILY PRN ORAL Constipation 09/25/20 23:00 10/25/20 22:59 Morphine Sulfate (Morphine Sulfate) 2 mg Q4H PRN IVP For Pain 09/25/20 22:45 10/02/20 22:44 Multivitamins (Multivitamins) 1 tab DAILY ORAL 09/26/20 09:00 10/26/20 08:59 09/27/20 08:32 Ondansetron HCl (Zofran) 4 mg Q4H PRN IVP Nausea & Vomiting 09/25/20 22:45 10/25/20 22:44 Pantoprazole (Protonix) 40 mg DAILY ORAL 09/26/20 09:00 10/26/20 08:59 09/26/20 21:07 Paroxetine HCl (Paxil) 10 mg DAILY ORAL 09/26/20 09:00 10/26/20 08:59 09/27/20 08:33 Assessment/Plan Assessment/Plan: Hematology Consultation BENJAMIN MD: Harini Butts DOS: 09/28/2020 RFC: Anemia eval ID 75-year-old male here with bloody stool. Patient says that for the past 3 days he has had severe diarrhea and that earlier today he had a large amount of diarrhea that was mixed with red blood. Patient does have a history of anterior status post partial colectomy and was told that he has some polyps still. Denies fevers, chills, chest pain, shortness of breath, palpitations, lightheadedness, back pain, abdominal pain, nausea, vomiting, dysuria. Is now s/p colo and heme consulted, for potential dc today. 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 Well-healed midline sternotomy scar Cardiovascular: regular rate, rhythm, no edema Gastrointestinal: normal bowel sounds, non tender, soft, non-distended, no guarding, Rectal: deferred Genitourinary: normal inspection, no CVA tenderness Musc: back normal, normal range of motion, gait/station normal, non-tender Neurologic: alert, motor strength/tone normal, oriented x3 Psychiatric: judgement/insight normal, memory normal Lymphatic: no adenopathy Labs: noted Imaging: reviewed Assessment and Recs # Anemia due to underlying Gi bleed --> s/p colo and egd with Dr. Foreman --> labs have been reviewed --> appears stable to dc at this time --> f/u pcp in 1 week # GI bleed ==> s/p gi eval # Pancreatitis -> sp ivfs # Hyperbilirubinemia --> bili reviewed # Diarrhea --> ivfs # Atrial fibrillation, 101 bpm, no ischemia, intervals WNL. --> anticoag if needed per cards Appreciate consultation and dw Daniel Hollins MD Sep 28, 2020 09:04
--- NOTE | 2020-09-28 10:00 | Consultation ---
DATE OF CONSULTATION: 09/27/2020 NEPHROLOGY CONSULTATION REFERRING PHYSICIAN: Sarkis Butts D.O. REASON FOR CONSULTATION: Electrolyte abnormalities. HISTORY OF PRESENT ILLNESS: The patient is a 75-year-old male, well known to me from outside practice, with history of hypertension, history of GERD 00:36, history of anxiety. He was admitted in the past. He was at [facility] for about 2 weeks and he started having some bloody diarrhea. He also had decreased p.o. intake. He was brought into [facility]. He got admitted. Over the course of hospital admission, the patient was found to be hypokalemic. I was called for management of renal disease and electrolyte imbalance. This morning, he is alert and awake. He is prepped to have a colonoscopy and endoscopy today. He denies having any nausea or vomiting. As a matter of fact, he is complaining of being hungry. Denies any melena or hematemesis over the course of hospital admission. ALLERGIES: He is allergic to penicillin. MEDICATIONS: At home include: 1. Albuterol 01:25 p.r.n. 2. gabapentin 1500 mg daily. 3. Magnesium oxide. 4. MDI 01:31. 5. Protonix. FAMILY HISTORY: Noncontributory. SOCIAL HISTORY: Has history of tobacco and alcohol abuse. He lives at home with a caregiver 01:46 who is very involved in his care. He denies any recreational drug use. REVIEW OF SYSTEMS: GENERAL: Complaining of generalized weakness. Denies any fever, chills, or night sweats. HEAD AND NECK: Denies any dysphagia, odynophagia, blurry vision, headache, or neck stiffness. PULMONARY: No shortness of breath, cough, or sputum. CARDIOVASCULAR: Denies any chest pain or palpitation. GASTROINTESTINAL: Denies any nausea or vomiting. Hematochezia has resolved. GENITOURINARY: Denies any dysuria, frequency, or hematuria. MUSCULOSKELETAL: Denies any 02:22. PHYSICAL EXAMINATION: VITAL SIGNS: The patient has a temperature of 98, blood pressure of 107/69. HEAD AND NECK: No JVP. No LAD. 02:33. Extraocular movements intact. Pupils are reactive to light and accommodation. LUNGS: Clear to auscultation. CARDIAC: Regular rate and rhythm. S1, S2. No murmur. No rub. ABDOMEN: Soft, nontender, and nondistended. EXTREMITIES: No edema. No clubbing. No cyanosis. LABORATORY DATA: Sodium of 138, potassium 3.2, chloride 106, bicarb 73. BUN 9, creatinine 0.8. Calcium 02:55. AST of 50, ALT of 29. UA revealed specific gravity of 1.016 03:06, blood 3+, 03:09 1+, WBC 5-10, RBC 03:16. CBC revealed WBC count of 7.4, hemoglobin of 10.8, hematocrit of 32, and platelet count of 165,000. ASSESSMENT: 1. Persistent hypokalemia, most likely GI loss. 2. Hypocalcemia 03:33. 3. GI bleeding. Hemoglobin has dropped from 12 to 10, most likely GI loss 03:46. 4. History of EtOH abuse. PLAN: Change 03:52, check potassium. Check magnesium level. Check vitamin level hypocalcemia. At the end, I would like to thank Dr. Sarkis Butts for allowing me to participate in the care of this patient. Sushila Sweeney M.D. DR: NEWTON JOB#: [id number] CC:
--- NOTE | 2020-09-28 10:02 | NUR ---
DISCHARGE DISPOSITION: PLEASE READ PATIENT TO BE DISCHARGED TO [place] [id number] [facility] [address] T: [phone]>> CALL FOR REPORT [facility] ETA 1200 TRANSFER REPORT PROVIDED VM LEFT FOR CAREGIVER GUME
--- NOTE | 2020-09-28 10:12 | NUR ---
NURSE NOTES: Patient anxious, frustrated and yelling wants to go home, refusing to go back to [facility]. Message left for Dr. Butts, awaiting call back. Leonela [facility] aware. Addendum: 09/28/20 at 1014 by Soni Logan RN Mone RASHID notified of above. Addendum: 09/28/20 at 1017 by Soni Logan RN Patient refusing all scheduled AM meds.
--- NOTE | 2020-09-28 10:39 | NUR ---
RD ASSESSMENT & RECOMMENDATIONS SEE CARE ACTIVITY FOR COMPLETE ASSESSMENT DAILY ESTIMATED NEEDS: Needs based on underweight 56.4kg 30-35 kcals/kg 2700-2091 total kcals 1-1.5 g protein/kg 56-85 g total protein 25-30 mL/kg 8372-1322 total fluid mLs NUTRITION DIAGNOSIS: Altered nutrition related lab values r/t clinical status as evidenced by elev Lipase (593 on adm-> now wnl), elev T bili (4.3) CURRENT DIET: Regular PO DIET RECOMMENDATIONS: Low fat/soft diet ADDITIONAL RECOMMENDATIONS: 1) Obtain calibrated bed scale wt 2) Monitor lytes while NPO, maintain D5 3) F/up w/ H&P 4) Add Ensure Clear TID w/ diet Monitor lipase, ability to add Ensure Enlive (11g fat) Add Ensure Enlive qdaily (350 kcal/day)
--- NOTE | 2020-09-28 10:42 | Infectious Diseases Prog Note ---
Assessment/Plan Assessment: Afebrile NO leukocytosis -u/a wbc 10-15, nit neg, leuk +1 Bloody diarrhea- r/o infectious vs inflammatory colitis, malignancy, diverticular bleed -sp EGD./Colonoscopy: gastritis, hemorrhoids -MRI abd: No evidence of gallstones. Dilated common bile duct, without evidence of downstream obstructive lesion or choledocholithiasis. Significance/etiology uncertain, may be on the basis of senescent changes. Note absence of intrahepatic biliary ductal dilatation. Correlate with liver function tests. Trace free intraperitoneal fluid. Right-sided pleural effusion. Diverticulitis bladder. Incidental finding bilateral renal cysts -Abd US : Contracted gallbladder with no identifiable stones. Extrahepatic biliary ductal dilatation, consider MRCP to evaluate for choledocholithiasis. -elevated lipase GERD anxiety partial colectomy Plan: -Continue to monitor off abx unless febrile, leukocytosis, and/or HD instability -f/u cx -Monitor CBC/CMP, temperatures -f/u Cdiff, stool cx -GI f/u- for EGD/COlo today Thank you for consulting [facility]. Will continue to follow along with you. Discussed with RN. Subjective Allergies: Coded Allergies: PENICILLINS (Unverified Allergy, Unknown, 02/01/15) afebrile no leukocytosis Objective Last 24 Hour Vital Signs Date Time Temp Pulse Resp B/P (MAP) Pulse Ox O2 Delivery O2 Flow Rate FiO2 09/28/20 08:00 97.6 79 18 116/67 (83) 94 09/28/20 04:00 97.4 82 20 108/83 (91) 97 09/28/20 00:00 97.9 78 20 116/71 (86) 95 09/27/20 21:00 Room Air 09/27/20 20:00 97.9 76 22 120/74 (89) 96 09/27/20 18:34 97.9 75 20 99/54 (69) 93 09/27/20 16:00 86 09/27/20 16:00 97.1 74 20 96/60 (72) 95 09/27/20 13:47 68 20 98 09/27/20 13:42 97.9 81 22 97/56 98 Room Air 09/27/20 13:32 78 16 99/57 98 Nasal Cannula 3 09/27/20 13:27 76 23 101/57 97 Nasal Cannula 3 09/27/20 13:26 72 20 99 09/27/20 13:22 97.8 80 17 112/61 97 Nasal Cannula 3 09/27/20 12:00 98.0 73 20 100/58 (72) 95 09/27/20 12:00 72 Height (Feet): 5 Height (Inches): 10.00 Weight (Pounds): 55 HEENT: Normocephalic and atraumatic. Sclerae are anicteric. NECK: Supple. No evidence of obvious lymphadenopathy. CARDIOVASCULAR: Regular rate and rhythm. Plus S1-S2. LUNGS: Decreased breath sounds bilaterally based on the supine exam. ABDOMEN: Soft, nontender. No rebound. No guarding. No peritoneal sign. There is a scar from prior abdominal surgery. EXTREMITIES: No cyanosis, no clubbing, no edema. Microbiology Date/Time Source Procedure Growth Status 09/25/20 21:35 Rectum - Final NO CARBAPENEM-RESISTANT ENTEROBACTERI... Complete 09/25/20 21:35 Rectum VRE Culture - Final NO VANCOMYCIN RESISTANT ENTEROCOCCUS ... Complete 09/25/20 21:05 Nasal Nares MRSA Culture - Final NO METHICILLIN RESISTANT STAPH AUREUS... Complete 09/25/20 19:45 Nasopharynx SARS-CoV-2 RdRp Gene Assay - Final Complete Laboratory Tests Test 09/28/20 04:50 White Blood Count 7.6 K/UL (4.8-10.8) Red Blood Count 3.59 M/UL (4.70-6.10) L Hemoglobin 12.0 G/DL (14.2-18.0) L Hematocrit 37.8 % (42.0-52.0) L Mean Corpuscular Volume 105 FL (80-99) H Mean Corpuscular Hemoglobin 33.3 PG (27.0-31.0) H Mean Corpuscular Hemoglobin Concent 31.6 G/DL (32.0-36.0) L Red Cell Distribution Width 15.2 % (11.6-14.8) H Platelet Count 140 K/UL (150-450) L Mean Platelet Volume 10.1 FL (6.5-10.1) Neutrophils (%) (Auto) 67.9 % (45.0-75.0) Lymphocytes (%) (Auto) 19.5 % (20.0-45.0) L Monocytes (%) (Auto) 8.3 % (1.0-10.0) Eosinophils (%) (Auto) 3.1 % (0.0-3.0) H Basophils (%) (Auto) 1.3 % (0.0-2.0) Sodium Level 138 MMOL/L (136-145) Potassium Level 4.1 MMOL/L (3.5-5.1) Chloride Level 106 MMOL/L (98-107) Carbon Dioxide Level 25 MMOL/L (21-32) Anion Gap 7 mmol/L (5-15) Blood Urea Nitrogen 9 mg/dL (7-18) Creatinine 0.9 MG/DL (0.55-1.30) Estimat Glomerular Filtration Rate > 60 mL/min (>60) Glucose Level 87 MG/DL (74-106) Calcium Level 8.1 MG/DL (8.5-10.1) L Current Medications Medications (Trade) Dose Ordered Sig/Chioma Route PRN Reason Start Time Stop Time Status Last Admin Dose Admin Acetaminophen (Tylenol) 650 mg Q4H PRN ORAL Mild Pain (Pain Scale 1-3) 09/25/20 23:00 10/25/20 22:59 Al Hydroxide/Mg Hydroxide (Mylanta) 30 ml Q6H PRN ORAL HEART BURN 09/25/20 23:00 10/25/20 22:59 Bisacodyl (Dulcolax) 10 mg DAILYPRN PRN RECTAL Constipation 09/25/20 23:00 12/24/20 22:59 Clonidine HCl (Catapres Tab) 0.1 mg Q6H PRN ORAL For High Blood Pressure 09/25/20 23:00 12/24/20 22:59 Dextrose/ Electrolytes 1,000 ml @ 60 mls/hr [id number] IV 09/27/20 14:00 10/27/20 13:59 09/28/20 06:45 Docusate Sodium (Colace) 100 mg DAILY ORAL 09/26/20 09:00 10/26/20 08:59 09/27/20 08:33 Gabapentin (Neurontin) 300 mg TID ORAL 09/26/20 09:00 10/26/20 08:59 09/27/20 18:07 Lorazepam (Ativan) 1 mg Q12H PRN ORAL For Anxiety 09/25/20 23:00 10/02/20 22:59 09/25/20 23:16 Magnesium Hydroxide (Mom) 30 ml DAILY PRN ORAL Constipation 09/25/20 23:00 10/25/20 22:59 Morphine Sulfate (Morphine Sulfate) 2 mg Q4H PRN IVP For Pain 09/25/20 22:45 10/02/20 22:44 Multivitamins (Multivitamins) 1 tab DAILY ORAL 09/26/20 09:00 10/26/20 08:59 09/27/20 08:32 Ondansetron HCl (Zofran) 4 mg Q4H PRN IVP Nausea & Vomiting 09/25/20 22:45 10/25/20 22:44 Pantoprazole (Protonix) 40 mg DAILY ORAL 09/26/20 09:00 10/26/20 08:59 09/26/20 21:07 Paroxetine HCl (Paxil) 10 mg DAILY ORAL 09/26/20 09:00 10/26/20 08:59 09/27/20 08:33 Dilcia Celestin M.D. Sep 28, 2020 10:42
--- NOTE | 2020-09-28 11:13 | NUR ---
ORAL SURGERY TECHNICIAN NOTE SW spoke w/ pt and obtained information that he was residing alone at [address] , [place] [address]. Pt reports that he is independent w/ ADLs and ambulatory w/o DME. Per chart review, PT recommended SNF for further intervention (Please refer PT note). Pt has a caregiver who lives next door, Viki Boo [phone]. Pt was unable to recall the exact IHSS hours, but reported more than 60 hours per month. Pt reports he receives sufficient support from his caregiver and he would like to return home upon DC. Pt provided verbal consent to contact Viki. SW left a for call back.
--- NOTE | 2020-09-28 12:06 | NUR ---
DISCHARGE PLANNING: NOTE DC LOCATION [address], [place] [address] PT TO BE DISCHARGED TO HOME NOT SNF CLINICALS FAXED TO [facility] FOR REVIEW AMBULANCE CANCELLED. CICI REED MADE AWARE THAT PT WILL NOT BE RETURNING AT THIS TIME. Addendum: 09/28/20 at 1630 by Mone Curran CM [facility] IS ACCEPTING THIS PATIENT INTO SERVICE AND WILL SEE THE PT WITHIN 24-48H
--- NOTE | 2020-09-28 12:11 | NUR ---
NURSE NOTES: New order received from Dr. Butts, patient to be discharged home with HH ( [facility]), Mone RASHID notified (patient home address confirmed with patient and Mone), [place] transfer/[facility] transportation cancelled. [facility] nursing line construction supervisor and Leonela [facility]U aware. Patient updated/verbalized understanding. Patient caregiver, Viki anne, will picking crew supervisor patient from [facility] at this time.
--- NOTE | 2020-09-28 12:45 | NUR ---
NURSE NOTES: Discharge instructions reviewed with patient and Viki (MALINDA), verbalized understanding. All belongings and discharge instructions given to patient. IV saline lock, out per patient, no active bleeding. ID bracelet removed. Sent down to lobby with RN, via in stable condition. Discharged at 1245.
--- NOTE | 2020-09-28 21:17 | Cardiology Progress Note ---
Assessment/Plan Assessment/Plan 1. Hx of CAD, s/p one vessel CABG, LONG to LAD, stable, not a candidate for ASA use in view of GI bleed. 2. S/P VSD repair 3. LV aneurysm following PA, s/p aneurysmectomy. 4. Failure to thrive. 5. Hx of GI bleed. Subjective Subjective No cardiac events reported. Denies chest pain or SOB. Transferred to the med-surg unit. Objective Last 24 Hour Vital Signs Date Time Temp Pulse Resp B/P (MAP) Pulse Ox O2 Delivery O2 Flow Rate FiO2 09/28/20 09:00 Room Air 09/28/20 08:00 97.6 79 18 116/67 (83) 94 09/28/20 04:00 97.4 82 20 108/83 (91) 97 09/28/20 00:00 97.9 78 20 116/71 (86) 95 Intake and Output 09/27/20 09/28/20 19:00 07:00 Intake Total 960 ml 660 ml Output Total 700 ml 500 ml Balance 260 ml 160 ml Intake Oral 400 ml IV Total 560 ml 660 ml Output Urine Total 700 ml 500 ml # Voids 2 2 # Bowel Movements 3 5 Laboratory Tests Test 09/28/20 04:50 White Blood Count 7.6 K/UL (4.8-10.8) Red Blood Count 3.59 M/UL (4.70-6.10) L Hemoglobin 12.0 G/DL (14.2-18.0) L Hematocrit 37.8 % (42.0-52.0) L Mean Corpuscular Volume 105 FL (80-99) H Mean Corpuscular Hemoglobin 33.3 PG (27.0-31.0) H Mean Corpuscular Hemoglobin Concent 31.6 G/DL (32.0-36.0) L Red Cell Distribution Width 15.2 % (11.6-14.8) H Platelet Count 140 K/UL (150-450) L Mean Platelet Volume 10.1 FL (6.5-10.1) Neutrophils (%) (Auto) 67.9 % (45.0-75.0) Lymphocytes (%) (Auto) 19.5 % (20.0-45.0) L Monocytes (%) (Auto) 8.3 % (1.0-10.0) Eosinophils (%) (Auto) 3.1 % (0.0-3.0) H Basophils (%) (Auto) 1.3 % (0.0-2.0) Sodium Level 138 MMOL/L (136-145) Potassium Level 4.1 MMOL/L (3.5-5.1) Chloride Level 106 MMOL/L (98-107) Carbon Dioxide Level 25 MMOL/L (21-32) Anion Gap 7 mmol/L (5-15) Blood Urea Nitrogen 9 mg/dL (7-18) Creatinine 0.9 MG/DL (0.55-1.30) Estimat Glomerular Filtration Rate > 60 mL/min (>60) Glucose Level 87 MG/DL (74-106) Calcium Level 8.1 MG/DL (8.5-10.1) L Microbiology Date/Time Source Procedure Growth Status 09/25/20 21:35 Rectum - Final NO CARBAPENEM-RESISTANT ENTEROBACTERI... Complete 09/25/20 21:35 Rectum VRE Culture - Final NO VANCOMYCIN RESISTANT ENTEROCOCCUS ... Complete Objective HEENT: normocephalic, atraumatic, bilateral eye PERRL, bilateral eye EOMI Neck: JVP less 5cm, no carotid bruit, carotid upstroke 2+ B/L Respiratory: Diminished BS both lungs. Cardiovascular: normal S1S2, regular rate and rhythm, no murmurs, gallops or rubs Gastrointestinal: non tender, soft, non-distended, no guarding, + BS. Musculoskeletal: No edema,clubbing or cyanosis. Dhruv Silveira MD Sep 28, 2020 21:17
--- NOTE | 2020-09-29 21:14 | Consultation ---
DATE OF CONSULTATION: 09/26/2020 CARDIOLOGY CONSULTATION REFERRING PHYSICIAN: Sarkis Butts MD REASON FOR CONSULTATION: Management of coronary artery disease in a patient with prior history of myocardial infarction and recent episode of GI bleed. HISTORY OF PRESENT ILLNESS: The patient is a very unfortunate 75-year-old gentleman who is brought into the emergency department at [facility] for evaluation of bloody stool. At times, the patient has had severe diarrhea, bloody diarrhea for the past 3 days. The patient has a prior history of partial colectomy following the adenomatous polyp found during colonoscopy. He has extensive cardiac history including history of coronary artery disease, status post 1-vessel coronary bypass graft surgery from LONG to LAD, history of massive myocardial infarction, complicated by VSD and LV aneurysm, for which he underwent LV aneurysmectomy as well as VSD repair at [facility]. The patient has a history of alcohol abuse and dependence as well, and he has had multiple admissions for detox, which has been unsuccessful. He also has failure to thrive. At the time of arrival to this facility, blood pressure was 111/60 mmHg, and heart rate was 98. Oxygen saturation 100% on room air. The patient denied any chest pain or shortness of breath. PAST MEDICAL HISTORY: As mentioned above. 1. History of adenomatous polyps, status post partial colectomy at [facility]. 2. History of GI bleed. 3. History of CAD, status post myocardial infarction, complicated by LV aneurysm as well as VSD, status post LV aneurysmectomy as well as VSD repair. 4. History of alcohol abuse. 5. History of hypertension. 6. History of electrolyte abnormalities including hypomagnesemia. 7. History of noncompliance with medication. 8. History of fall. 9. Failure to thrive. 10. Anxiety disorder. PAST SURGICAL HISTORY: 1. Colonoscopy/EGD. 2. Status post partial colectomy. 3. One-vessel coronary artery bypass graft surgery with LONG to LAD. 4. History of LV aneurysmectomy. 5. Status post VSD repair. REVIEW OF SYSTEMS: HEENT: Denies any headache, diplopia, or blurred vision. CONSTITUTIONAL: Complains of generalized weakness, but no fever, chills, night sweats. CARDIOVASCULAR: Denies any chest pain, shortness of breath, PND, orthopnea, or leg swelling. PULMONARY: Denies any cough, hemoptysis, wheezing. GASTROINTESTINAL: Denies any nausea, vomiting. Positive for diarrhea mixed with blood. No constipation. No melanotic stool. No hematemesis. GENITOURINARY: Denies any hematuria, dysuria, or incontinence. NEUROLOGY: Denies any motor dysfunction, sensory deficit, or altered speech. LIST OF MEDICATIONS: Noncompliant with medications and currently the patient is taking no medication at home. ALLERGIES: No known drug allergies. FAMILY HISTORY: No premature coronary artery disease in first-degree relatives. SOCIAL HISTORY: Continues to smoke on a daily basis as well as drinking alcohol heavily on a daily basis. He claims that in the past 11 days he has not been drinking alcohol. He denies any history of drug use. PHYSICAL EXAMINATION: VITAL SIGNS: Blood pressure is 111/60 mmHg, heart rate of 98, respirations 16, O2 saturation 100% on room air, temperature 98.1 degrees Fahrenheit. GENERAL: The patient is a very unfortunate 75-year-old gentleman, in no apparent respiratory distress. Alert and oriented x4. HEENT: Atraumatic, normocephalic. Anicteric. Pupils are equal, round, and reactive to light and accommodation. Extraocular muscles intact. NECK: JVP is less than 5 cm. No carotid bruit. Carotid upstroke is 2+ bilaterally. CARDIOVASCULAR: Normal S1, S2. Regular rate and rhythm. No murmurs, gallops, or rubs. PMI is at fourth intercostal space and midclavicular line. LUNGS: Diminished breath sounds in both lungs. ABDOMEN: Soft, nontender, nondistended. No hepatosplenomegaly. Positive bowel sounds. EXTREMITIES: No evidence of edema, clubbing, or cyanosis. LABORATORY FINDING: At the time of my arrival to the hospital, WBC is 9.6, hemoglobin 12.3, hematocrit of 37.8%, and platelet count is 141. Sodium 141, potassium 3.4, chloride 108, bicarbonate 26, BUN of 17, creatinine 1.1, glucose is 96, calcium is 8.7, lipase is , albumin is 2.4. Ultrasound of the abdomen showed contracted gallbladder with no identifiable stones. Extrahepatic biliary ductal dilatation. Consider MRCP for Colace 2 cholelithiasis. Abdominal MRI showed no evidence of gallstones, dilated common bile duct without evidence of obstructive lesion or choledocholithiasis, right-sided pleural effusion, diverticulum within the bladder, and bilateral renal cysts. A 12-lead electrocardiogram in the emergency department was significant for multifocal atrial tachycardia and not atrial fibrillation, which was by mistake read by the statistical programmer. No evidence of ischemia, left axis deviation. ASSESSMENT AND PLAN: The patient is a very unfortunate 75-year-old gentleman seen in cardiology consultation. 1. History of coronary artery disease, status post myocardial infarction, complicated by VSD and LV aneurysm, status post left aneurysmectomy as well as VSD repair, currently stable from cardiac standpoint. There is no evidence of ischemia on 12-lead electrocardiogram. The patient is not a candidate for antiplatelet therapy as he has GI bleed. He has been advised to take statins, but he has been noncompliant with all of his medications given to him in the past due to severe alcoholism. 2. History of 1-vessel coronary artery bypass graft surgery, LONG to LAD. 3. Malnutrition with albumin of 2.4. 4. Possible acute pancreatitis with elevated lipase level, consider GI consult. 5. GI bleed. Gastroenterology consultation. I would like to thank Dr. Butts for allowing me to participate in the care of this patient. Dhruv Silveira M.D. DR: BE JOB#: [id number] CC:
--- NOTE | 2020-09-30 14:42 | Discharge Summary ---
Discharge Summary Discharge Summary _ DATE OF ADMISSION: 09/25/2020 DATE OF DISCHARGE: 09/28/2020 DISCHARGED BY: Dr. Sarkis Butts CONSULTANTS: Dr. Dhruv Hodge [facility] HOSPITAL COURSE: The patient is a 75-year-old male, from [facility], presented to ED due to abdominal pain, diarrhea with bright blood. He has medical history of colon cancer status post resection, hypertension, CAD, history of TN complicated by VSD and LV aneurysm status post LV aneurysm'ectomy as well as VSD repair, alcohol abuse, polyneuropathy, GERD, weakness and insomnia. Upon evaluation at ED, vital signs were stable. Blood work did not show any leukocytosis. Hemoglobin 12, hematocrit 38. Platelet count 141. Electrolytes showed potassium of 3.4. Kidney function normal. Lipase 593. Patient EKG showed atrial fibrillation with normal rate of 100 bpm. He was Hemoccult positive. He had evidence of hyperbilirubinemia with total bilirubin of 4. He was given IV normal saline and was kept n.p.o. Abdominal ultrasound showed a contracted gallbladder with no identifiable stones. Some mild extrahepatic biliary duct dilatation. He was given Protonix. He was admitted for GI bleed. MRI of the abdomen did not show any evidence of gallstones. Dilated common bile duct, without evidence of downstream obstruction or active lesion or choledocholithiasis. On 09/27/2020, he underwent EGD with colonoscopy. Patient had evidence of diffuse gastritis. Patient had 2 polyps which were removed. Internal hemorrhoids. There was no evidence of diverticulosis. No evidence of active bleeding, however, quality of prep was very poor. Recommended a repeat colonoscopy if with recurrent signs and symptoms of GI bleed. Patient had anemia however did not require blood transfusion. Anemia appears to be stable. EKG was reviewed by bread slicer machine. EKG showed multifocal atrial tachycardia not atrial fibrillation. There was no evidence of ischemia, left axis deviation. Patient is not a candidate for antiplatelet therapy due to GI bleed. He was advised to take statins but patient has been noncompliant with all of his medications given in the past due to severe alcoholism. Patient was eventually discharged home with home health. FINAL DIAGNOSES: Bloody diarrhea/acute GI bleed Possible acute pancreatitis with elevated lipase level Malnutrition History of coronary artery disease status post TN complicated by VSD and LV aneurysm History of one-vessel coronary artery bypass graft surgery, LONG to LAD GERD Anxiety History of partial colectomy Hypokalemia Hypocalcemia History of EtOH abuse Anemia due to underlying GI bleed Hyperbilirubinemia Status post upper endoscopy with biopsy and colonoscopy with polypectomy and biopsy Gastritis Inlet patch 2 colonic polyps, removed Diverticulosis of left colon Internal hemorrhoids DISPOSITION: MT home with home health. DISCHARGE MEDICATIONS: Refer to Discharge Medication List. DISCHARGE INSTRUCTIONS: Follow-up in a week. I have been assigned to complete a discharge summary on this account, I was not involved with the patient's management.--NIVIA Carroll Jacqueline Robles NP Sep 30, 2020 14:42
== END 2020-09-28 12:53 | disposition home or self-care (01) | DRG 377 ==
LOC: EDBD 18:47 → EMR 19:16 → 2E 19:25 → EDBEDREQ 20:36 → EDBEDREQSVC 20:36 → EDBEDREQ 21:10 → 3E 09-27 18:31
PROC: 0DB78ZX Excision of Stomach, Pylorus, Via Natural or Artificial Opening Endoscopic, Diagnostic (ICD-10-PCS; principal; 2020-09-27 12:57)
PROC: 0DBL8ZZ Excision of Transverse Colon, Via Natural or Artificial Opening Endoscopic (ICD-10-PCS; principal; 2020-09-27 12:57)
DX: K29.71 Gastritis, unspecified, with bleeding (principal); K85.90 Acute pancreatitis without necrosis or infection, unspecified; E44.0 Moderate protein-calorie malnutrition; N39.0 Urinary tract infection, site not specified; Z68.1 Body mass index [BMI] 19.9 or less, adult; K29.70 Gastritis, unspecified, without bleeding; Z88.0 Allergy status to penicillin; I10 Essential (primary) hypertension; K21.9 Gastro-esophageal reflux disease without esophagitis; I48.91 Unspecified atrial fibrillation; G62.9 Polyneuropathy, unspecified; G47.00 Insomnia, unspecified; I25.10 Atherosclerotic heart disease of native coronary artery without angina pectoris; I25.2 Old myocardial infarction; Z95.1 Presence of aortocoronary bypass graft; F41.9 Anxiety disorder, unspecified; D50.0 Iron deficiency anemia secondary to blood loss (chronic); Z90.49 Acquired absence of other specified parts of digestive tract; E87.6 Hypokalemia; E83.51 Hypocalcemia; E80.6 Other disorders of bilirubin metabolism; K63.5 Polyp of colon; K57.30 Diverticulosis of large intestine without perforation or abscess without bleeding; K64.8 Other hemorrhoids; Z85.038 Personal history of other malignant neoplasm of large intestine; F10.11 Alcohol abuse, in remission; Z91.81 History of falling; R62.7 Adult failure to thrive; Z91.14 Patient's other noncompliance with medication regimen; F17.200 Nicotine dependence, unspecified, uncomplicated
CPT/HCPCS: 36415; 74181; 76700; 80048; 80053; 81003; 82150; 82248; 82378; 82607; 82746; 83540; 83550; 83690; 85025; 85610; 85730; 86850; 86900; 86901; 87081; 93005; 94003; 94150; 96360; 96361; 99285; J7030; J8499; U0002